=== PATIENT | male | born 1950 | race Caucasian/White ===

== ENCOUNTER 2017-08-09 20:14 | Emergency (ER) | payer MEDICARE ==
[2017-08-09 20:26] VITALS: BP 135/82; PULSE 89; RESP 20; TEMP 98.2
[2017-08-09] MEDS ORDERED: methylPREDNISolone SOD SUCCI 125 MG/2 ML VIAL IM STA (20:49)
--- NOTE | 2017-08-09 20:55 | ED ---
General Adult HPI - General Chief complaint: Skin/Abscess/Foreign Body Stated complaint: Rash Time Seen by Provider: 08/09/17 20:33 Source: patient, RN notes reviewed Mode of arrival: ambulatory Limitations: no limitations - History of Present Illness Initial comments: Patient 66-year-old male who presents emergency room today with a chief complaint of rash to his lower extremities over the last month. Doesn't that to the family doctor was prescribed a topical steroid which she only use twice because he did not like how it made him feel. He states he's been using oral steroids which is about finished. Patient states still having the rash to the lower extremities. He denies any other complaints. He states very itchy. Patient denies any recent fever, chills, shortness of breath, chest pain, back pain, abdominal pain, nausea or vomiting, numbness or tingling, dysuria or hematuria, constipation or diarrhea, headaches or visual changes, or any other complaints. - Related Data Home Medications Medication Instructions Recorded Confirmed Isosorbide Mononitrate ER [Imdur] 60 mg PO DAILY 10/21/15 08/09/17 Levothyroxine Sodium [Synthroid] 200 mcg PO DAILY 10/21/15 08/09/17 Lisinopril-Hctz 20-12.5 mg 1 tab PO DAILY 10/21/15 08/09/17 [Zestoretic 20-12.5] Metoprolol Tartrate [Lopressor] 75 mg PO DAILY 10/21/15 08/09/17 Potassium Chloride [Klor-Con 10] 10 meq PO HS 10/21/15 08/09/17 Pravastatin Sodium [Pravachol] 20 mg PO HS 10/21/15 08/09/17 traMADol HCL [Ultram] 100 mg PO BID 10/21/15 08/09/17 Aspirin 325 mg PO DAILY 08/27/16 08/09/17 Furosemide [Lasix] 20 mg PO DAILY 08/27/16 08/09/17 Multivit-Min/FA/Lycopen/Lutein 1 each PO DAILY 08/27/16 08/09/17 [Centrum Silver Tablet] Nitroglycerin Sl Tabs [Nitrostat] 0.4 mg SUBLINGUAL Q5M PRN 08/27/16 08/09/17 metFORMIN HCL [Glucophage] 500 mg PO BID 08/27/16 08/09/17 Previous Rx's Medication Instructions Recorded Mupirocin 2% Oint [Bactroban 2% 1 applic TOPICAL TID 7 Days 10/25/16 Oint] valACYclovir HCL [Valtrex] 1,000 mg PO Q8HR 7 Days 10/25/16 Betamethasone Valerate 1 applic TOPICAL BID 14 Days 08/09/17 [Betamethasone Valerate 0.1%] Allergies Allergy/AdvReac Type Severity Reaction Status Date / Time Iodine and Iodide Containing Allergy Rash/Hives Verified 08/09/17 20:26 Produc Review of Systems ROS Statement: Those systems with pertinent positive or pertinent negative responses have been documented in the HPI. ROS Other: All systems not noted in ROS Statement are negative. Past Medical History Past Medical History: Chest Pain / Angina, COPD, Diabetes Mellitus, Hyperlipidemia, Hypertension, Osteoarthritis (OA), Thyroid Disorder Additional Past Medical History / Comment(s): ARTHRITIS LOWER BACK & HIPS History of Any Multi-Drug Resistant Organisms: None Reported Past Surgical History: Coronary Bypass/CABG, Heart Catheterization, Tonsillectomy Additional Past Surgical History / Comment(s): kidney stones X 14- (LARGE KIDNEY STONE REMOVED 1980)HEART CATH X 3, DOUBLE BYPASS(CABG) 2002 Past Anesthesia/Blood Transfusion Reactions: Previous Problems w/ Anesthesia Additional Past Anesthesia/Blood Transfusion Reaction / Comment(s): PT WAS TOLD "HARD TO INTUBATE" Past Psychological History: No Psychological Hx Reported Smoking Status: Former smoker Past Alcohol Use History: None Reported Past Drug Use History: None Reported - Past Family History Mother Family Medical History: Myocardial Infarction ([place]) Additional Family Medical History / Comment(s): @ AGE 41 [place] Father Family Medical History: Diabetes Mellitus Additional Family Medical History / Comment(s): @ AGE 78 BLOCKAGE IN PANCREATIC DUCT General Exam - General Exam Comments Initial Comments: Patient denies any recent fever, chills, shortness of breath, chest pain, back pain, abdominal pain, nausea or vomiting, numbness or tingling, dysuria or hematuria, constipation or diarrhea, headaches or visual changes, or any other complaints. Limitations: no limitations Course Vital Signs 08/09/17 20:24 Temperature 98.2 F Pulse Rate 89 Respiratory 20 Rate Blood Pressure 135/82 O2 Sat by Pulse 98 Oximetry Disposition Clinical Impression: Contact dermatitis Disposition: HOME SELF-CARE Condition: Good Instructions: Contact Dermatitis (ED) Additional Instructions: Please use medication as discussed. Please follow-up with family doctor in the next 2 days of symptoms have not improved. Please return to emergency room if the symptoms increase or worsen or for any other concerns. Prescriptions: Betamethasone Valerate [Betamethasone Valerate 0.1%] 1 applic TOPICAL BID 14 Days Referrals: Cecilia Olmedo III, MD [Primary Care Provider] - 1-2 days Time of Disposition: 20:51
== END 2017-08-09 21:09 | disposition home or self-care (01) ==
LOC: EC 20:14
DX: L25.9 Unspecified contact dermatitis, unspecified cause (principal); E11.9 Type 2 diabetes mellitus without complications; E78.5 Hyperlipidemia, unspecified; I10 Essential (primary) hypertension; M19.90 Unspecified osteoarthritis, unspecified site; E07.9 Disorder of thyroid, unspecified; Z87.891 Personal history of nicotine dependence; Z79.82 Long term (current) use of aspirin; Z79.84 Long term (current) use of oral hypoglycemic drugs; Z79.899 Other long term (current) drug therapy; Z88.8 Allergy status to other drugs, medicaments and biological substances
CPT/HCPCS: 99282; 96372; J2930

== ENCOUNTER 2018-04-04 13:33 | Inpatient (IN) | payer MEDICARE, OTHER ==
[2018-04-04] MEDS ORDERED: ACETAMINOPHEN TAB 500 MG TAB PO STA (13:44)
[2018-04-04] MEDS ORDERED: SODIUM CHLORIDE 0.9% 1,000 ML IV STA ×2 (13:44)
[2018-04-04] MEDS ORDERED: IBUPROFEN 600 MG TAB PO STA (13:44)
[2018-04-04] MEDS ORDERED: IPRATROPIUM-ALBUTEROL 3 ML NEB INHALATION STA (13:45)
[2018-04-04] MEDS ORDERED: methylPREDNISolone SOD SUCCI 125 MG/2 ML VIAL IV STA (13:45)
--- NOTE | 2018-04-04 14:08 | ED ---
General Adult HPI - General Chief complaint: Fever Stated complaint: Fever, Weak Time Seen by Provider: 04/04/18 13:43 Source: patient, RN notes reviewed, old records reviewed Mode of arrival: wheelchair Limitations: no limitations - History of Present Illness Initial comments: This is a 59-year-old male to the ER for evaluation today. Patient's presenting today for evaluation regards to weakness, fatigue, cough congestion fever. Patient is also medical comorbidities including heart disease COPD. Recent hospital admission for COPD. Patient states he feels the need of prior pneumonia. No recent travel history, no known sick contacts. - Related Data Home Medications Medication Instructions Recorded Confirmed Isosorbide Mononitrate ER [Imdur] 60 mg PO DAILY 10/21/15 08/09/17 Levothyroxine Sodium [Synthroid] 200 mcg PO DAILY 10/21/15 08/09/17 Lisinopril-Hctz 20-12.5 mg 1 tab PO DAILY 10/21/15 08/09/17 [Zestoretic 20-12.5] Metoprolol Tartrate [Lopressor] 75 mg PO DAILY 10/21/15 08/09/17 Potassium Chloride [Klor-Con 10] 10 meq PO HS 10/21/15 08/09/17 Pravastatin Sodium [Pravachol] 20 mg PO HS 10/21/15 08/09/17 traMADol HCL [Ultram] 100 mg PO BID 10/21/15 08/09/17 Aspirin 325 mg PO DAILY 08/27/16 08/09/17 Furosemide [Lasix] 20 mg PO DAILY 08/27/16 08/09/17 Multivit-Min/FA/Lycopen/Lutein 1 each PO DAILY 08/27/16 08/09/17 [Centrum Silver Tablet] Nitroglycerin Sl Tabs [Nitrostat] 0.4 mg SUBLINGUAL Q5M PRN 08/27/16 08/09/17 metFORMIN HCL [Glucophage] 500 mg PO BID 08/27/16 08/09/17 Previous Rx's Medication Instructions Recorded Mupirocin 2% Oint [Bactroban 2% 1 applic TOPICAL TID 7 Days gm 10/25/16 Oint] valACYclovir HCL [Valtrex] 1,000 mg PO Q8HR 7 Days tab 10/25/16 Betamethasone Valerate 1 applic TOPICAL BID 14 Days gm 08/09/17 [Betamethasone Valerate 0.1%] Allergies Allergy/AdvReac Type Severity Reaction Status Date / Time Iodine and Iodide Containing Allergy Rash/Hives Verified 04/04/18 13:39 Produc Review of Systems ROS Statement: Those systems with pertinent positive or pertinent negative responses have been documented in the HPI. ROS Other: All systems not noted in ROS Statement are negative. Past Medical History Past Medical History: Chest Pain / Angina, COPD, Diabetes Mellitus, Hyperlipidemia, Hypertension, Osteoarthritis (OA), Thyroid Disorder Additional Past Medical History / Comment(s): ARTHRITIS LOWER BACK & HIPS History of Any Multi-Drug Resistant Organisms: None Reported Past Surgical History: Coronary Bypass/CABG, Heart Catheterization, Tonsillectomy Additional Past Surgical History / Comment(s): kidney stones X 14- (LARGE KIDNEY STONE REMOVED 1980)HEART CATH X 3, DOUBLE BYPASS(CABG) 2002 Past Anesthesia/Blood Transfusion Reactions: Previous Problems w/ Anesthesia Additional Past Anesthesia/Blood Transfusion Reaction / Comment(s): PT WAS TOLD "HARD TO INTUBATE" Past Psychological History: No Psychological Hx Reported Smoking Status: Former smoker Past Alcohol Use History: None Reported Past Drug Use History: None Reported - Past Family History Mother Family Medical History: Myocardial Infarction ([place]) Additional Family Medical History / Comment(s): @ AGE 41 [place] Father Family Medical History: Diabetes Mellitus Additional Family Medical History / Comment(s): @ AGE 78 BLOCKAGE IN PANCREATIC DUCT General Exam Limitations: no limitations General appearance: alert, in no apparent distress Head exam: Present: atraumatic, normocephalic, normal inspection Eye exam: Present: normal appearance, PERRL, EOMI. Absent: scleral icterus, conjunctival injection, periorbital swelling ENT exam: Present: normal exam, mucous membranes moist Neck exam: Present: normal inspection. Absent: tenderness, meningismus, lymphadenopathy Respiratory exam: Present: normal lung sounds bilaterally. Absent: respiratory distress, wheezes, rales, rhonchi, stridor Cardiovascular Exam: Present: regular rate, normal rhythm, normal heart sounds. Absent: systolic murmur, diastolic murmur, rubs, gallop, clicks GI/Abdominal exam: Present: soft, normal bowel sounds. Absent: distended, tenderness, guarding, rebound, rigid Extremities exam: Present: normal inspection, full ROM, normal capillary refill. Absent: tenderness, pedal edema, joint swelling, calf tenderness Back exam: Present: normal inspection Neurological exam: Present: alert, oriented X3, CN II-XII intact Psychiatric exam: Present: normal affect, normal mood Skin exam: Present: warm, dry, intact, normal color. Absent: rash Course Vital Signs 04/04/18 04/04/18 04/04/18 13:37 14:05 14:24 Temperature 99.4 F Pulse Rate 72 70 72 Respiratory 20 Rate Blood Pressure 144/80 O2 Sat by Pulse 98 Oximetry - Reevaluation(s) Reevaluation #1: 04/04/18 14:08 Medical record prior hospitalizations reviewed Reevaluation #2: 04/04/18 15:14 Patient is positive for flu, patient's informed. Breathing treatment and symptom control, fever control Medical Decision Making - Medical Decision Making 59 male the ER for evasive fever and weakness, positive influenza. COPD exacerbation with breathing. Patient will be admitted for continued IV steroids , breathing treatments hemodynamic support - Lab Data Result diagrams: 04/04/18 13:55 04/04/18 13:55 Lab Results 04/04/18 04/04/18 04/04/18 Range/Units 13:55 13:55 13:55 WBC 6.5 (3.8-10.6) k/uL RBC 4.76 (4.30-5.90) m/uL Hgb 14.8 (13.0-17.5) gm/dL Hct 43.7 (39.0-53.0) % MCV 91.8 (80.0-100.0) fL MCH 31.2 (25.0-35.0) pg MCHC 33.9 (31.0-37.0) g/dL RDW 13.4 (11.5-15.5) % Plt Count 191 (150-450) k/uL Neutrophils % 69 % Lymphocytes % 20 % Monocytes % 5 % Eosinophils % 3 % Basophils % 1 % Neutrophils # 4.5 (1.3-7.7) k/uL Lymphocytes # 1.3 (1.0-4.8) k/uL Monocytes # 0.3 (0-1.0) k/uL Eosinophils # 0.2 (0-0.7) k/uL Basophils # 0.0 (0-0.2) k/uL Sodium 147 H (137-145) mmol/L Potassium 4.1 (3.5-5.1) mmol/L Chloride 103 (98-107) mmol/L Carbon Dioxide 27 (22-30) mmol/L Anion Gap 17 mmol/L BUN 41 H (9-20) mg/dL Creatinine 1.50 H (0.66-1.25) mg/dL Est GFR (CKD-EPI)AfAm 55 (>60 ml/min/1.73 sqM) Est GFR (CKD-EPI)NonAf 47 (>60 ml/min/1.73 sqM) Glucose 208 H (74-99) mg/dL Plasma Lactic Acid [place] 2.0 (0.7-2.0) mmol/L Calcium 9.3 (8.4-10.2) mg/dL Total Bilirubin 0.2 (0.2-1.3) mg/dL AST 42 (17-59) U/L ALT 27 (21-72) U/L Alkaline Phosphatase 105 (38-126) U/L Total Protein 7.3 (6.3-8.2) g/dL Albumin 4.1 (3.5-5.0) g/dL Urine Color Urine Appearance (Clear) Urine pH (5.0-8.0) Ur Specific [place] (1.001-1.035) Urine Protein (Negative) Urine Glucose (UA) (Negative) Urine Ketones (Negative) Urine Blood (Negative) Urine Nitrite (Negative) Urine Bilirubin (Negative) Urine Urobilinogen (<2.0) mg/dL Ur Leukocyte Esterase (Negative) Influenza Type A RNA (Not Detectd) Influenza Type B (PCR) (Not Detectd) 04/04/18 04/04/18 Range/Units 13:55 14:46 WBC (3.8-10.6) k/uL RBC (4.30-5.90) m/uL Hgb (13.0-17.5) gm/dL Hct (39.0-53.0) % MCV (80.0-100.0) fL MCH (25.0-35.0) pg MCHC (31.0-37.0) g/dL RDW (11.5-15.5) % Plt Count (150-450) k/uL Neutrophils % % Lymphocytes % % Monocytes % % Eosinophils % % Basophils % % Neutrophils # (1.3-7.7) k/uL Lymphocytes # (1.0-4.8) k/uL Monocytes # (0-1.0) k/uL Eosinophils # (0-0.7) k/uL Basophils # (0-0.2) k/uL Sodium (137-145) mmol/L Potassium (3.5-5.1) mmol/L Chloride (98-107) mmol/L Carbon Dioxide (22-30) mmol/L Anion Gap mmol/L BUN (9-20) mg/dL Creatinine (0.66-1.25) mg/dL Est GFR (CKD-EPI)AfAm (>60 ml/min/1.73 sqM) Est GFR (CKD-EPI)NonAf (>60 ml/min/1.73 sqM) Glucose (74-99) mg/dL Plasma Lactic Acid [place] (0.7-2.0) mmol/L Calcium (8.4-10.2) mg/dL Total Bilirubin (0.2-1.3) mg/dL AST (17-59) U/L ALT (21-72) U/L Alkaline Phosphatase (38-126) U/L Total Protein (6.3-8.2) g/dL Albumin (3.5-5.0) g/dL Urine Color Light Yellow Urine Appearance Clear (Clear) Urine pH 5.0 (5.0-8.0) Ur Specific [place] 1.009 (1.001-1.035) Urine Protein Trace H (Negative) Urine Glucose (UA) Trace H (Negative) Urine Ketones Negative (Negative) Urine Blood Negative (Negative) Urine Nitrite Negative (Negative) Urine Bilirubin Negative (Negative) Urine Urobilinogen <2.0 (<2.0) mg/dL Ur Leukocyte Esterase Negative (Negative) Influenza Type A RNA Not Detected (Not Detectd) Influenza Type B (PCR) Detected H (Not Detectd) - Radiology Data Radiology results: report reviewed (Chest x-rays negative for acute disease), image reviewed Disposition Clinical Impression: Influenza, Fever, Weakness, Acute exacerbation of COPD with asthma Disposition: ADMITTED IP TO THIS [facility] Condition: Good Referrals: Cecilia Olmedo III, MD [Primary Care Provider] - 1-2 days
[2018-04-04 14:09] LABS: Basophils % (A) 1 %; Eosinophils # (A) 0.2 k/uL (0-0.7); Eosinophils % (A) 3 %; HCT 43.7 % (39.0-53.0); HGB 14.8 gm/dL (13.0-17.5); Lymphocytes # (A) 1.3 k/uL (1.0-4.8); Lymphocytes % (A) 20 %; MCH 31.2 pg (25.0-35.0); MCHC 33.9 g/dL (31.0-37.0); MCV 91.8 fL (80.0-100.0); Mean Platelet Volume 7.8; Monocytes # (A) 0.3 k/uL (0-1.0); Monocytes % (A) 5 %; Neutrophils # (A) 4.5 k/uL (1.3-7.7); Neutrophils % (A) 69 %; Platelet Count 191 k/uL (150-450); RBC 4.76 m/uL (4.30-5.90); RDW 13.4 % (11.5-15.5); WBC 6.5 k/uL (3.8-10.6)
[2018-04-04 14:15] LABS: Albumin 4.1 g/dL (3.5-5.0); Calcium 9.3 mg/dL (8.4-10.2); Potassium 4.1 mmol/L (3.5-5.1); Total Bilirubin 0.2 mg/dL (0.2-1.3); Total Protein 7.3 g/dL (6.3-8.2)
--- NOTE | 2018-04-04 14:49 | XR ---
EXAMINATION TYPE: XR chest 2V DATE OF EXAM: 04/04/2018 COMPARISON: 10/21/2015 INDICATION: Cough TECHNIQUE: Frontal and lateral views of the chest are obtained. FINDINGS: The heart size is normal. The pulmonary vasculature is normal. The lungs are clear. Sternotomy wires are present from prior CABG. IMPRESSION: 1. No acute pulmonary process.
[2018-04-04 15:04] LABS: Appearance,Urine Clear (Clear); Bilirubin,Urine Negative (Negative); Blood,Urine Negative (Negative); Color,Urine Light Yellow; Glucose,Urine (UA) Trace (Negative); Ketones,Urine Negative (Negative); Leukocyte Esterase,Urine Negative (Negative); Nitrite,Urine Negative (Negative); Protein,Urine Trace (Negative); Specific Gravity,Urine 1.009 (1.001-1.035); Urobilinogen,Urine <2.0 mg/dL (<2.0)
[2018-04-04] MEDS ORDERED: OSELTAMIVIR 75 MG CAP PO STA (15:12)
[2018-04-04] MEDS ORDERED: traMADol 50 MG TAB PO STA (15:13)
[2018-04-04] MEDS ORDERED: SODIUM CHLORIDE 0.9% 1,000 ML IV SCH (15:15)
[2018-04-04] MEDS: IPRATROPIUM-ALBUTEROL 3 ML NEB INHALATION SCH ×2 (16:01→19:58)
[2018-04-04 16:16] VITALS: BMI 35.6
[2018-04-04] MEDS ORDERED: NITROGLYCERIN SL TABS 0.4 MG TAB SUBLINGUAL PRN (16:29)
[2018-04-04] MEDS: methylPREDNISolone SOD SUCCI 125 MG/2 ML VIAL IV SCH (17:10)
[2018-04-04 17:21] LABS: Glucose,Whole Blood 149 mg/dL (75-99)
[2018-04-04] MEDS: INSULIN ASPART 100 UNIT/ML 1 ML 10 ML VIAL SQ SCH ×2 (17:35→21:35)
[2018-04-04 20:46] LABS: Glucose,Whole Blood 196 mg/dL (75-99)
[2018-04-04] MEDS: OSELTAMIVIR 75 MG CAP PO SCH (21:34)
[2018-04-04] MEDS: traMADol 50 MG TAB PO SCH (21:34)
[2018-04-04] MEDS: PRAVASTATIN SODIUM 20 MG TAB PO SCH (21:35)
[2018-04-05] MEDS: methylPREDNISolone SOD SUCCI 125 MG/2 ML VIAL IV SCH ×2 (00:02→05:49)
--- NOTE | 2018-04-05 00:03 | P.HPIM ---
History of Present Illness H&P Date: 04/04/18 Chief Complaint: Shortness of breath Patient is a 67-year-old male with a known history of COPD, hypertension, diabetes type 2 and history of coronary artery disease status post CABG and stent placement as well and other multiple medical problems came to ER with complaints of cough with congestion fever. Patient was also having generalized body aches weakness and fatigue. Patient was also having shortness of breath. Patient says that his has been coughing up as well and she got improved. Patient felt like he was having pneumonia No recent illnesses. No recent travel. Patient does have previous history of smoking quit in 2002 Chest x-ray showed no acute process Influenza B+ Past Medical History Past Medical History: Chest Pain / Angina, COPD, Diabetes Mellitus, Hyperlipidemia, Hypertension, Osteoarthritis (OA), Thyroid Disorder Additional Past Medical History / Comment(s): ARTHRITIS LOWER BACK & HIPS History of Any Multi-Drug Resistant Organisms: None Reported Past Surgical History: Coronary Bypass/CABG, Heart Catheterization, Tonsillectomy Additional Past Surgical History / Comment(s): kidney stones X 14- (LARGE KIDNEY STONE REMOVED 1980)HEART CATH X 3, DOUBLE BYPASS(CABG) 2002 Past Anesthesia/Blood Transfusion Reactions: Previous Problems w/ Anesthesia Additional Past Anesthesia/Blood Transfusion Reaction / Comment(s): PT WAS TOLD "HARD TO INTUBATE" Past Psychological History: No Psychological Hx Reported Additional Psychological History / Comment(s): Lives at home with Smoking Status: Former smoker Past Alcohol Use History: None Reported Additional Past Alcohol Use History / Comment(s): QUIT SMOKING 2002- SMOKES ABOUT 20 YRS OFF & ON 1/2-1 PPD Past Drug Use History: None Reported - Past Family History Mother Family Medical History: Myocardial Infarction ([place]) Additional Family Medical History / Comment(s): @ AGE 41 [place] Father Family Medical History: Diabetes Mellitus Additional Family Medical History / Comment(s): @ AGE 78 BLOCKAGE IN PANCREATIC DUCT Medications and Allergies Home Medications Medication Instructions Recorded Confirmed Type Isosorbide Mononitrate ER [Imdur] 60 mg PO DAILY 10/21/15 04/04/18 History Lisinopril-Hctz 20-12.5 mg 1 tab PO DAILY 10/21/15 04/04/18 History [Zestoretic 20-12.5] Metoprolol Tartrate [Lopressor] 75 mg PO DAILY 10/21/15 04/04/18 History Potassium Chloride [Klor-Con 10] 10 meq PO HS 10/21/15 04/04/18 History Pravastatin Sodium [Pravachol] 20 mg PO HS 10/21/15 04/04/18 History traMADol HCL [Ultram] 100 mg PO BID 10/21/15 04/04/18 History Aspirin 325 mg PO DAILY 08/27/16 04/04/18 History Multivit-Min/FA/Lycopen/Lutein 1 tab PO DAILY 08/27/16 04/04/18 History [Centrum Silver Tablet] Nitroglycerin Sl Tabs [Nitrostat] 0.4 mg SUBLINGUAL Q5M PRN 08/27/16 04/04/18 History metFORMIN HCL [Glucophage] 1,000 mg PO BID 08/27/16 04/04/18 History Furosemide [Lasix] 20 mg PO DAILY 04/04/18 04/04/18 History Allergies Allergy/AdvReac Type Severity Reaction Status Date / Time Iodine and Iodide Containing Allergy Rash/Hives Verified 04/04/18 15:15 Produc Physical Exam Vitals: Vital Signs Temp Pulse Pulse Resp BP BP Pulse Ox 04/04/18 16:00 97.5 F L 72 20 128/71 99 04/04/18 15:47 98.8 F 04/04/18 15:18 76 20 158/85 98 04/04/18 14:24 72 04/04/18 14:05 70 04/04/18 13:37 99.4 F 72 20 144/80 98 Intake and Output 04/04/18 04/04/18 04/04/18 06:59 14:59 22:59 Other: Weight 100.244 kg 100 kg Results CBC & Chem 7: 04/04/18 13:55 04/04/18 13:55 Labs: Abnormal Lab Results - Last 24 Hours (Table) 04/04/18 04/04/18 04/04/18 Range/Units 13:55 13:55 14:46 Sodium 147 H (137-145) mmol/L BUN 41 H (9-20) mg/dL Creatinine 1.50 H (0.66-1.25) mg/dL Glucose 208 H (74-99) mg/dL Urine Protein Trace H (Negative) Urine Glucose (UA) Trace H (Negative) Influenza Type B (PCR) Detected H (Not Detectd) Thrombosis Risk Factor Assmnt - Choose All That Apply Any of the Below Risk Factors Present?: Yes Each Factor Represents 1 point: Abnormal pulmonary function (COPD) Other Risk Factors: Yes Each Risk Factor Represents 2 Points: Age 61-74 years Thrombosis Risk Factor Assessment Total Risk Factor Score: 3 Thrombosis Risk Factor Assessment Level: Moderate Risk Assessment and Plan Assessment: Acute COPD exacerbation was precipitated by influenza B Acute influenza B infection Acute kidney injury most likely prerenal Hyponatremia 147 History of coronary artery disease status post coronary artery bypass graft Previous history of renal stones. Hypertension Diabetes type 2. [id number] Hyperlipidemia Osteoarthritis of multiple joints Hypothyroidism Previous history of smoking Plan: Patient will be continued on breathing treatments and IV steroids and continue the home medications and symptomatic management and follow closely. Further recommendations based on the clinical course. Current with home medications except hold Lasix and lisinopril/hydrochlorothiazide. Time with Patient: Greater than 30
[2018-04-05 07:39] LABS: Glucose,Whole Blood 195 mg/dL (75-99)
[2018-04-05] MEDS: IPRATROPIUM-ALBUTEROL 3 ML NEB INHALATION SCH ×4 (07:52→21:19)
[2018-04-05] MEDS: ENOXAPARIN 40 MG/0.4 ML SYRINGE SQ SCH (08:42)
[2018-04-05] MEDS: INSULIN ASPART 100 UNIT/ML 1 ML 10 ML VIAL SQ SCH ×4 (08:42→21:41)
[2018-04-05] MEDS: METOPROLOL TARTRATE 25 MG TAB PO SCH (08:43)
[2018-04-05] MEDS: ISOSORBIDE MONONITRATE ER 60 MG TAB.ER.24H PO SCH (08:43)
[2018-04-05] MEDS: OSELTAMIVIR 75 MG CAP PO SCH (08:43)
[2018-04-05] MEDS: ASPIRIN 325 MG TAB PO SCH (08:43)
[2018-04-05] MEDS: traMADol 50 MG TAB PO SCH ×2 (08:51→21:43)
[2018-04-05] MEDS ORDERED: METOPROLOL TARTRATE 50 MG TAB PO SCH (09:00)
[2018-04-05 10:09] LABS: Basophils % (A) 0 %; Eosinophils % (A) 0 %; HCT 40.3 % (39.0-53.0); HGB 12.8 gm/dL (13.0-17.5); Lymphocytes # (A) 0.5 k/uL (1.0-4.8); Lymphocytes % (A) 12 %; MCH 29.8 pg (25.0-35.0); MCHC 31.8 g/dL (31.0-37.0); MCV 93.8 fL (80.0-100.0); Mean Platelet Volume 8.6; Monocytes # (A) 0.2 k/uL (0-1.0); Monocytes % (A) 4 %; Neutrophils # (A) 3.7 k/uL (1.3-7.7); Neutrophils % (A) 83 %; Platelet Count 176 k/uL (150-450); RBC 4.29 m/uL (4.30-5.90); RDW 13.5 % (11.5-15.5); WBC 4.4 k/uL (3.8-10.6)
[2018-04-05 10:31] LABS: Calcium 8.9 mg/dL (8.4-10.2); Potassium 4.1 mmol/L (3.5-5.1)
[2018-04-05 12:06] LABS: Glucose,Whole Blood 245 mg/dL (75-99)
[2018-04-05] MEDS: MULTIVITAMINS, THERA 1 EACH TAB PO SCH (12:49)
--- NOTE | 2018-04-05 15:22 | P.CNPUL ---
<Ruthie Nicholas M - Last Filed: 04/05/18 15:01> History of Present Illness Consult date: 04/05/18 Requesting physician: Saira Carbajal Reason for consult: dyspnea, cough Chief complaint: Dyspnea, weakness, fatigue, cough, chest congestion or fever History of present illness: Mr. Dumas is a 67-year-old white male patient of Dr. Olmedo, also follows with Dr. Larsen for his history of mild intermittent asthma, presented to the emergency department on 04/04/2018 1333 with complaints of increasing dyspnea, weakness, fatigue, cough, chest congestion and fever. 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 Other medical history includes diabetes mellitus, hyperlipidemia, hypertension, osteoarthritis, hypothyroidism, coronary artery disease with past history of coronary bypass grafting, nephrolithiasis. Patient is a former smoker. Not on any inhalers or oxygen at this time, other than his rescue inhaler. Patient was last seen in the office last September 2017. Influenza screen was positive for influenza B. Chest x-ray showed no acute pulmonary process. No evidence of leukocytosis, but evidence of prerenal azotemia with BUN 41 and creatinine of 1.5. Patient has been afebrile while inpatient. Patient was started on Tamiflu, nebulized bronchodilators, IV Solu-Medrol and was admitted for further management. Review of Systems All systems: negative Constitutional: Denies chills, Denies fever Eyes: denies blurred vision, denies pain Ears, nose, mouth and throat: Denies headache, Denies sore throat Cardiovascular: Denies chest pain, Denies shortness of breath Respiratory: Reports congestion, Reports dyspnea, Denies cough Gastrointestinal: Denies abdominal pain, Denies diarrhea, Denies nausea, Denies vomiting Musculoskeletal: Denies myalgias Integumentary: Denies pruritus, Denies rash Neurological: Denies numbness, Denies weakness Psychiatric: Denies anxiety, Denies depression Endocrine: Denies fatigue, Denies weight change Past Medical History Past Medical History: Chest Pain / Angina, COPD, Diabetes Mellitus, Hyperlipidemia, Hypertension, Osteoarthritis (OA), Thyroid Disorder Additional Past Medical History / Comment(s): ARTHRITIS LOWER BACK & HIPS History of Any Multi-Drug Resistant Organisms: None Reported Past Surgical History: Coronary Bypass/CABG, Heart Catheterization, Tonsillectomy Additional Past Surgical History / Comment(s): kidney stones X 14- (LARGE KIDNEY STONE REMOVED 1980)HEART CATH X 3, DOUBLE BYPASS(CABG) 2002 Past Anesthesia/Blood Transfusion Reactions: Previous Problems w/ Anesthesia Additional Past Anesthesia/Blood Transfusion Reaction / Comment(s): PT WAS TOLD "HARD TO INTUBATE" Past Psychological History: No Psychological Hx Reported Additional Psychological History / Comment(s): Lives at home with Smoking Status: Former smoker Past Alcohol Use History: None Reported Additional Past Alcohol Use History / Comment(s): QUIT SMOKING 2002- SMOKES ABOUT 20 YRS OFF & ON 1/2-1 PPD Past Drug Use History: None Reported - Past Family History Mother Family Medical History: Myocardial Infarction ([place]) Additional Family Medical History / Comment(s): @ AGE 41 [place] Father Family Medical History: Diabetes Mellitus Additional Family Medical History / Comment(s): @ AGE 78 BLOCKAGE IN PANCREATIC DUCT Medications and Allergies Home Medications Medication Instructions Recorded Confirmed Type Isosorbide Mononitrate ER [Imdur] 60 mg PO DAILY 10/21/15 04/04/18 History Lisinopril-Hctz 20-12.5 mg 1 tab PO DAILY 10/21/15 04/04/18 History [Zestoretic 20-12.5] Metoprolol Tartrate [Lopressor] 75 mg PO DAILY 10/21/15 04/04/18 History Potassium Chloride [Klor-Con 10] 10 meq PO HS 10/21/15 04/04/18 History Pravastatin Sodium [Pravachol] 20 mg PO HS 10/21/15 04/04/18 History traMADol HCL [Ultram] 100 mg PO BID 10/21/15 04/04/18 History Aspirin 325 mg PO DAILY 08/27/16 04/04/18 History Multivit-Min/FA/Lycopen/Lutein 1 tab PO DAILY 08/27/16 04/04/18 History [Centrum Silver Tablet] Nitroglycerin Sl Tabs [Nitrostat] 0.4 mg SUBLINGUAL Q5M PRN 08/27/16 04/04/18 History metFORMIN HCL [Glucophage] 1,000 mg PO BID 08/27/16 04/04/18 History Furosemide [Lasix] 20 mg PO DAILY 04/04/18 04/04/18 History Allergies Allergy/AdvReac Type Severity Reaction Status Date / Time Iodine and Iodide Containing Allergy Rash/Hives Verified 04/04/18 15:15 Produc Physical Exam Vitals: Vital Signs Temp Pulse Pulse Resp BP BP Pulse Ox 04/05/18 11:37 82 16 04/05/18 11:27 80 16 04/05/18 08:03 78 16 04/05/18 08:00 54 L 16 04/05/18 07:52 77 16 04/05/18 05:35 97.3 F L 54 L 14 138/72 97 04/04/18 22:30 97.1 F L 84 16 143/86 98 04/04/18 20:07 72 04/04/18 19:58 72 04/04/18 16:00 97.5 F L 72 20 128/71 99 04/04/18 15:47 98.8 F 04/04/18 15:18 76 20 158/85 98 Intake and Output 04/05/18 04/05/18 04/05/18 06:59 14:59 22:59 Intake Total 1599 Balance 1599 Intake: Intake, IV Titration 1599 Amount Sodium Chloride 0.9% 1, 600 000 ml @ 75 mls/hr IV . [id number] STA Rx#:[id number] Sodium Chloride 0.9% 1, 999 000 ml @ 999 mls/hr IV . Q1H1M STA Rx#:[id number] - Constitutional General appearance: average body habitus - EENT Eyes: EOMI ENT: NA/AT, normal oropharynx - Neck Neck: no lymphadenopathy, normal ROM Carotids: bilateral: upstroke normal Thyroid: bilateral: normal size - Respiratory Respiratory: bilateral: diminished, prolonged expiration, other (bronchospastic cough) - Cardiovascular Rhythm: regular Heart sounds: normal: S1, S2 ankle Peripheral Edema: absent: None foot Peripheral Edema: absent: None dorsalis pedis Peripheral Pulses: bilateral: Normal radial pulse Peripheral Pulses: bilateral: Normal - Gastrointestinal General gastrointestinal: no organomegaly, soft, no tenderness - Integumentary Integumentary: normal turgor - Neurologic Neurologic: CNII-XII intact - Musculoskeletal Musculoskeletal: gait normal, strength equal bilaterally - Psychiatric Psychiatric: A&O x's 3, appropriate affect Results - Laboratory Findings CBC and BMP: 04/05/18 09:35 04/05/18 09:35 Abnormal lab findings: Abnormal Labs 05/05/1704/04/18 04/04/18 13:55 13:55 14:46 RBC Hgb Lymphocytes # Sodium 147 H BUN 41 H Creatinine 1.50 H Glucose 208 H POC Glucose (mg/dL) Urine Protein Trace H Urine Glucose (UA) Trace H Influenza Type B (PCR) Detected H 04/04/18 04/04/18 04/05/18 17:17 20:44 07:24 RBC Hgb Lymphocytes # Sodium BUN Creatinine Glucose POC Glucose (mg/dL) 149 H 196 H 195 H Urine Protein Urine Glucose (UA) Influenza Type B (PCR) 04/05/18 04/05/18 04/05/18 09:35 09:35 12:00 RBC 4.29 L Hgb 12.8 L Lymphocytes # 0.5 L Sodium BUN 39 H Creatinine Glucose 286 H POC Glucose (mg/dL) 245 H Urine Protein Urine Glucose (UA) Influenza Type B (PCR) - Diagnostic Findings Chest x-ray: report reviewed, image reviewed Assessment and Plan Plan: Assessment: #1. Influenza B infection #2. Acute exacerbation of mild intermittent asthma secondary to the above #3. Acute kidney injury secondary to dehydration #4. Coronary artery disease, status post two-vessel coronary bypass grafting, and previous stenting #5. Diabetes mellitus #6. Hypertension, hyperlipidemia #7. Osteoarthritis #8. Nicotine dependence, currently in remission Plan: Continue current medical treatment, patient has received a liter bolus of IV hydration, continue IV Solu-Medrol, Tamiflu, nebulized bronchodilators. We'll continue to follow. Anticipate further improvement I performed a history & physical examination of the patient and discussed their management with my nurse practitioner, Ruthie Nicholas. I reviewed the nurse practitioner's note and agree with the documented findings and plan of care. Lung sounds are diminished, prolonged expiratory phase, bronchospastic cough. The findings and the impression was discussed with the patient. I attest to the documentation by the nurse practitioner. Time with Patient: Greater than 30 <Jovana Kelly - Last Filed: 04/05/18 15:34> Physical Exam Vitals: Vital Signs Temp Pulse Pulse Resp BP Pulse Ox 04/05/18 11:37 82 16 04/05/18 11:27 80 16 04/05/18 08:03 78 16 04/05/18 08:00 54 L 16 04/05/18 07:52 77 16 04/05/18 05:35 97.3 F L 54 L 14 138/72 97 04/04/18 22:30 97.1 F L 84 16 143/86 98 04/04/18 20:07 72 04/04/18 19:58 72 04/04/18 16:00 97.5 F L 72 20 128/71 99 04/04/18 15:47 98.8 F Intake and Output 04/05/18 04/05/18 04/05/18 06:59 14:59 22:59 Intake Total 1599 Balance 1599 Intake: Intake, IV Titration 1599 Amount Sodium Chloride 0.9% 1, 600 000 ml @ 75 mls/hr IV . [id number] STA Rx#:[id number] Sodium Chloride 0.9% 1, 999 000 ml @ 999 mls/hr IV . Q1H1M STA Rx#:[id number] Other: # Voids 3 Results - Laboratory Findings CBC and BMP: 04/05/18 09:35 04/05/18 09:35 Abnormal lab findings: Abnormal Labs 04/04/18 04/04/18 04/04/18 13:55 13:55 14:46 RBC Hgb Lymphocytes # Sodium 147 H BUN 41 H Creatinine 1.50 H Glucose 208 H POC Glucose (mg/dL) Urine Protein Trace H Urine Glucose (UA) Trace H Influenza Type B (PCR) Detected H 04/04/18 04/04/18 04/05/18 17:17 20:44 07:24 RBC Hgb Lymphocytes # Sodium BUN Creatinine Glucose POC Glucose (mg/dL) 149 H 196 H 195 H Urine Protein Urine Glucose (UA) Influenza Type B (PCR) 04/05/18 04/05/18 04/05/18 09:35 09:35 12:00 RBC 4.29 L Hgb 12.8 L Lymphocytes # 0.5 L Sodium BUN 39 H Creatinine Glucose 286 H POC Glucose (mg/dL) 245 H Urine Protein Urine Glucose (UA) Influenza Type B (PCR) Assessment and Plan Plan: This is a joint evaluation that was done along with a nurse practitioner. The patient has an acute exacerbation of mild intermittent bronchial asthma secondary influenza B respiratory tract infection. 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 He did not smoking for now. Anticipate improvement and discharge in the next 24-48 hours. Clinically stable.
[2018-04-05] MEDS: methylPREDNISolone SOD SUCCI 40 MG/ML 1 ML VIAL IV SCH (16:22)
[2018-04-05 17:42] LABS: Glucose,Whole Blood 278 mg/dL (75-99)
[2018-04-05 21:23] LABS: Glucose,Whole Blood 337 mg/dL (75-99)
[2018-04-05] MEDS: PRAVASTATIN SODIUM 20 MG TAB PO SCH (21:43)
[2018-04-05 23:32] VITALS: RESP 14
[2018-04-06] MEDS: OSELTAMIVIR 60 MG/10 ML ORAL SYRINGE PO SCH ×2 (00:37→08:09)
[2018-04-06] MEDS: methylPREDNISolone SOD SUCCI 40 MG/ML 1 ML VIAL IV SCH ×3 (00:39→15:28)
--- NOTE | 2018-04-06 01:16 | P.PN ---
Subjective Progress Note Date: 04/05/18 Principal diagnosis: Acute influenza B infection Patient is a 67-year-old male with a known history of COPD, hypertension, diabetes type 2 and history of coronary artery disease status post CABG and stent placement as well and other multiple medical problems came to ER with complaints of cough with congestion fever. Patient was also having generalized body aches weakness and fatigue. Patient was also having shortness of breath. Patient says that his has been coughing up as well and she got improved. Patient felt like he was having pneumonia No recent illnesses. No recent travel. Patient does have previous history of smoking quit in 2002 Chest x-ray showed no acute process Influenza B+ 5 7 2017 Patient denied any complaints of chest pain. Shortness of breath much improved. Otherwise patient started tolerating oral diet slowly. IV fluids will be held at this time and steroids will be changed to Solu-Medrol 40 mg every 8 hourly. Diarrhea resolved as well. Renal function improved as well as sodium level. Discharge tomorrow with the more clinical improvement. All other review of systems negative except the above Active Medications Generic Name Dose Route Start Last Admin Trade Name Freq PRN Reason Stop Dose Admin Albuterol/Ipratropium 3 ml 04/04/18 16:00 04/05/18 07:52 Duoneb 0.5 Mg-3 Mg/3 Ml Soln INHALATION 3 ml RT-QID LEILA Administration Aspirin 325 mg 04/05/18 09:00 04/05/18 08:43 Aspirin PO 325 mg DAILY LEILA Administration Enoxaparin Sodium 40 mg 04/05/18 09:00 04/05/18 08:42 Lovenox SQ 40 mg DAILY LEILA Administration Insulin Aspart 0 unit 04/04/18 17:30 04/05/18 08:42 Novolog SQ 5 unit ACHS LEILA Administration Protocol Isosorbide Mononitrate 60 mg 04/05/18 09:00 04/05/18 08:43 Imdur PO 60 mg DAILY LEILA Administration Methylprednisolone Sodium Succinate 40 mg 04/05/18 16:00 Solu-Medrol IV Q8HR [facility] Metoprolol Tartrate 75 mg 04/05/18 09:00 04/05/18 08:43 Lopressor PO 75 mg DAILY LEILA Administration Multivitamins 1 each 04/05/18 12:00 Theragran PO 1200 [facility] Nitroglycerin 0.4 mg 04/04/18 16:29 Nitrostat SUBLINGUAL Q5M PRN Chest Pain Oseltamivir Phosphate 30 mg 04/05/18 21:00 Tamiflu PO 04/09/18 09:01 Q12HR LEILA Pravastatin Sodium 20 mg 04/04/18 21:00 04/04/18 21:35 Pravachol PO 20 mg HS LEILA Administration Tramadol HCl 100 mg 04/04/18 21:00 04/05/18 08:51 Ultram PO 100 mg BID LEILA Administration Objective - Vital Signs Vital signs: Vital Signs Temp 97.3 F L 04/05/18 05:35 Pulse 78 04/05/18 08:03 Resp 16 04/05/18 08:03 BP 138/72 04/05/18 05:35 Pulse Ox 97 04/05/18 05:35 Intake & Output 04/04/18 04/05/18 04/05/18 18:59 06:59 18:59 Intake Total 1599 Balance 1599 Weight 100 kg Intake: Intake, IV Titration 1599 Amount Sodium Chloride 0.9% 1, 600 000 ml @ 75 mls/hr IV . [id number] STA Rx#:[id number] Sodium Chloride 0.9% 1, 999 000 ml @ 999 mls/hr IV . Q1H1M STA Rx#:[id number] Other: # Voids 1 - Exam PHYSICAL EXAMINATION: Patient is lying in the bed comfortably, no acute distress, awake alert and oriented.. HEENT: Normocephalic. Neck is supple. Pupils reactive. Nostrils clear. Oral cavity is moist. Ears reveal no drainage. Neck reveals no JVD, carotid bruits, or thyromegaly. CHEST EXAMINATION: Trachea is central. Symmetrical expansion. Air entry improving. Prolonged expiration. remaining Lung vazquez clear to auscultation and percussion. CARDIAC: Normal S1, S2 with no gallops. No murmurs ABDOMEN: Soft. Bowel sounds normal. No organomegaly. No abdominal bruits. Extremities: reveal no edema. No clubbing or cyanosis Neurologically awake, alert, oriented x3 with well-coordinated movements. No focal deficits noted Skin: No rash or skin lesions. Psychiatric: Cooperative. Nonsuicidal Musculoskeletal: No joint swelling or deformity. Normal range of motion. - Labs CBC & Chem 7: 04/05/18 09:35 04/05/18 09:35 Labs: Abnormal Lab Results - Last 24 Hours (Table) 04/04/18 04/04/18 04/04/18 Range/Units 13:55 13:55 14:46 RBC (4.30-5.90) m/uL Hgb (13.0-17.5) gm/dL Lymphocytes # (1.0-4.8) k/uL Sodium 147 H (137-145) mmol/L BUN 41 H (9-20) mg/dL Creatinine 1.50 H (0.66-1.25) mg/dL Glucose 208 H (74-99) mg/dL POC Glucose (mg/dL) (75-99) mg/dL Urine Protein Trace H (Negative) Urine Glucose (UA) Trace H (Negative) Influenza Type B (PCR) Detected H (Not Detectd) 04/04/18 04/04/18 04/05/18 Range/Units 17:17 20:44 07:24 RBC (4.30-5.90) m/uL Hgb (13.0-17.5) gm/dL Lymphocytes # (1.0-4.8) k/uL Sodium (137-145) mmol/L BUN (9-20) mg/dL Creatinine (0.66-1.25) mg/dL Glucose (74-99) mg/dL POC Glucose (mg/dL) 149 H 196 H 195 H (75-99) mg/dL Urine Protein (Negative) Urine Glucose (UA) (Negative) Influenza Type B (PCR) (Not Detectd) 04/05/18 04/05/18 Range/Units 09:35 09:35 RBC 4.29 L (4.30-5.90) m/uL Hgb 12.8 L (13.0-17.5) gm/dL Lymphocytes # 0.5 L (1.0-4.8) k/uL Sodium (137-145) mmol/L BUN 39 H (9-20) mg/dL Creatinine (0.66-1.25) mg/dL Glucose 286 H (74-99) mg/dL POC Glucose (mg/dL) (75-99) mg/dL Urine Protein (Negative) Urine Glucose (UA) (Negative) Influenza Type B (PCR) (Not Detectd) Microbiology - Last 24 Hours (Table) 04/04/18 14:46 Urine Culture - Preliminary Urine,Clean Catch Assessment and Plan Assessment: Acute asthma/COPD exacerbation was precipitated by influenza B and improving Acute influenza B infection Acute kidney injury most likely prerenal. resolved Hyponatremia 147--144 History of coronary artery disease status post coronary artery bypass graft Previous history of renal stones. Hypertension Diabetes type 2. [id number] home Hyperlipidemia Osteoarthritis of multiple joints Hypothyroidism Previous history of smoking Plan: Patient will be continued on breathing treatments and IV steroids and continue the home medications and symptomatic management and follow closely. Continue with Tamiflu 30 mg every 12 depending on the renal function. Further recommendations based on the clinical course. Current with home medications except hold Lasix and lisinopril/hydrochlorothiazide due to hypotension. Time with Patient: Greater than 30
[2018-04-06 06:42] VITALS: BP 139/74; TEMP 97.1
[2018-04-06 06:59] LABS: Glucose,Whole Blood 187 mg/dL (75-99)
[2018-04-06] MEDS: IPRATROPIUM-ALBUTEROL 3 ML NEB INHALATION SCH ×2 (07:48→11:42)
[2018-04-06] MEDS: INSULIN ASPART 100 UNIT/ML 1 ML 10 ML VIAL SQ SCH ×2 (08:07→12:49)
[2018-04-06] MEDS: ENOXAPARIN 40 MG/0.4 ML SYRINGE SQ SCH (08:08)
[2018-04-06] MEDS: ASPIRIN 325 MG TAB PO SCH (08:08)
[2018-04-06] MEDS: ISOSORBIDE MONONITRATE ER 60 MG TAB.ER.24H PO SCH (08:08)
[2018-04-06] MEDS: METOPROLOL TARTRATE 25 MG TAB PO SCH (08:08)
[2018-04-06] MEDS: traMADol 50 MG TAB PO SCH (08:15)
[2018-04-06] MEDS ORDERED: CALCIUM CARBONATE 500 MG CHEWABLE PO PRN (09:39)
[2018-04-06 11:34] LABS: Glucose,Whole Blood 148 mg/dL (75-99)
[2018-04-06 11:46] VITALS: PULSE 80
[2018-04-06] MEDS: MULTIVITAMINS, THERA 1 EACH TAB PO SCH (12:49)
--- NOTE | 2018-04-06 13:16 | P.PN ---
Subjective Progress Note Date: 04/06/18 Principal diagnosis: Acute exacerbation of mild intermittent asthma secondary to influenza B infection Mr. Dumas is a 67-year-old white male patient of Dr. Olmedo, also follows with Dr. Larsen for his history of mild intermittent asthma, presented to the emergency department on 04/04/2018 1333 with complaints of increasing dyspnea, weakness, fatigue, cough, chest congestion and fever. 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 Other medical history includes diabetes mellitus, hyperlipidemia, hypertension, osteoarthritis, hypothyroidism, coronary artery disease with past history of coronary bypass grafting, nephrolithiasis. Patient is a former smoker. Not on any inhalers or oxygen at this time, other than his rescue inhaler. Patient was last seen in the office last September 2017. Influenza screen was positive for influenza B. Chest x-ray showed no acute pulmonary process. No evidence of leukocytosis, but evidence of prerenal azotemia with BUN 41 and creatinine of 1.5. Patient has been afebrile while inpatient. Patient was started on Tamiflu, nebulized bronchodilators, IV Solu-Medrol and was admitted for further management. On 04/06/2018 patient seen in follow-up on medical surgical floor. Reports improvement in his dyspnea, and chest congestion. Lung sounds are clear to auscultation, no rhonchi or wheezing noted on today's exam. Patient is afebrile , vital signs are stable, patient is currently on room air, with O2 sat 98%. Patient started experiencing steroid induced hyperglycemia, and decided to stop taking them. Patient is stable, and in the steroids can be discontinued now. Patient is improving, no acute events overnight, patient has been treated with Tamiflu, nebulized bronchodilators, and he did receive a few doses of IV steroids with improvement. Patient is stable for discharge home today, with a follow-up appointment with to see Dr. Larsen within the week. Objective - Vital Signs Vital signs: Vital Signs Temp 97.1 F L 04/06/18 05:35 Pulse 80 04/06/18 11:55 Resp 14 04/06/18 05:35 BP 139/74 04/06/18 05:35 Pulse Ox 98 04/06/18 05:35 Intake & Output 04/05/18 04/06/18 04/06/18 18:59 06:59 18:59 Other: # Voids 3 2 # Bowel Movements 1 - Exam - Constitutional General appearance: average body habitus - EENT Eyes: EOMI ENT: NA/AT, normal oropharynx - Neck Neck: no lymphadenopathy, normal ROM Carotids: bilateral: upstroke normal Thyroid: bilateral: normal size - Respiratory Respiratory: bilateral: diminished, better air entry noted bilaterally, no rhonchi or wheezes noted on today's exam. - Cardiovascular Rhythm: regular Heart sounds: normal: S1, S2 ankle Peripheral Edema: absent: None foot Peripheral Edema: absent: None dorsalis pedis Peripheral Pulses: bilateral: Normal radial pulse Peripheral Pulses: bilateral: Normal - Gastrointestinal General gastrointestinal: no organomegaly, soft, no tenderness - Integumentary Integumentary: normal turgor - Neurologic Neurologic: CNII-XII intact - Musculoskeletal Musculoskeletal: gait normal, strength equal bilaterally - Psychiatric Psychiatric: A&O x's 3, appropriate affect - Labs CBC & Chem 7: 04/05/18 09:35 04/05/18 09:35 Labs: Abnormal Lab Results - Last 24 Hours (Table) 04/05/18 04/05/18 04/06/18 Range/Units 17:35 21:06 06:57 POC Glucose (mg/dL) 278 H 337 H 187 H (75-99) mg/dL 04/06/18 Range/Units 11:24 POC Glucose (mg/dL) 148 H (75-99) mg/dL Microbiology - Last 24 Hours (Table) 04/04/18 14:46 Urine Culture - Final Urine,Clean Catch 04/04/18 13:55 Blood Culture - Preliminary Blood No Growth after 24 hours Assessment and Plan Plan: Assessment: #1. Influenza B infection #2. Acute exacerbation of mild intermittent asthma secondary to the above #3. Acute kidney injury secondary to dehydration, improving #4. Steroid induced hyperglycemia #5. Coronary artery disease, status post two-vessel coronary bypass grafting, and previous stenting #6. Diabetes mellitus #7. Hypertension, hyperlipidemia #8. Osteoarthritis #9. Nicotine dependence, currently in remission Plan: Patient's renal profile is improving, he has been gently rehydrated, tolerating oral intake, patient is voiding. He has been treated with oral Tamiflu, has received a few doses of IV Solu-Medrol, IV bronchodilators, and responded favorably to treatments. Reports less chest congestion, less dyspnea and less chest tightness. 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 Patient will follow-up with Dr. Larsen in the office in one week I performed a history & physical examination of the patient and discussed their management with my nurse practitioner, Ruthie Nicholas. I reviewed the nurse practitioner's note and agree with the documented findings and plan of care. Lung sounds are clear. The findings and the impression was discussed with the patient. I attest to the documentation by the nurse practitioner. Time with Patient: Less than 30
--- NOTE | 2018-04-06 18:24 | DS ---
DISCHARGE SUMMARY FINAL DIAGNOSES: 1. Chronic obstructive pulmonary disease and bronchial asthma acute exacerbation with acute purulent tracheobronchitis. 2. Acute influenza B. 3. Acute kidney injury, possibly prerenal. 4. Hyponatremia. 5. History of coronary artery disease with coronary artery bypass graft. 6. Hypertension. 7. Diabetes mellitus type 2. DISCHARGE CONDITION: The patient will be discharged in stable condition with guarded prognosis. HISTORY OF PRESENT ILLNESS: This 67-year-old gentleman with a past medical history of multiple medical problems, was admitted with COPD, asthma acute exacerbation, influenza B treated symptomatically. Patient also multiple other complex medical issues as detailed. Patient improved significantly. On exam, vitals are stable. Cardiovascular S1 and S2. Abdomen soft. Nervous system, no focal deficits. DISCHARGE INSTRUCTIONS: 1. Cardiac diet. 2. Activity limited. FOLLOWUP: 1. Follow up with Dr. Larsen in 2 to 3 days. 2. Follow up with Dr. Olmedo in 2 to 3 days. MEDICATIONS: 1. Aspirin 325 mg daily. 2. Lasix 20 mg p.o. daily. 3. DuoNeb q.i.d. and p.r.n. 4. Imdur ER 60 mg p.o. daily. 5. Lisinopril hydrochlorothiazide 20/12.5 mg p.o. daily. 6. Glucophage 1000 mg p.o. b.i.d. 7. Lopressor 100 mg p.o. daily. 8. Multivitamin. 9. Nitrostat 0.4 mg p.r.n. 10.Tylenol 30 mg p.o. daily. 11.Klor-Con 10 mg p.o. at bedtime. 12.Pravachol 20 mg at bedtime. 13.Prednisone 30 mg daily for 3 days, 20 for 3 days, 10 for 3 days and then stop. Once again, the patient will be discharged in stable condition with guarded prognosis. MMODL / IJN: [id number] / [facility]
== END 2018-04-06 16:09 | disposition home or self-care (01) | DRG 191 ==
LOC: EC 13:33 → 4MS4W 15:13
PROVIDERS: ADMIT Hospitalist; ATTEND Hospitalist
DX: J44.1 Chronic obstructive pulmonary disease with (acute) exacerbation (principal); J45.21 Mild intermittent asthma with (acute) exacerbation; N17.9 Acute kidney failure, unspecified; E03.9 Hypothyroidism, unspecified; E11.65 Type 2 diabetes mellitus with hyperglycemia; E78.5 Hyperlipidemia, unspecified; E86.0 Dehydration; I10 Essential (primary) hypertension; I25.10 Atherosclerotic heart disease of native coronary artery without angina pectoris; J10.1 Influenza due to other identified influenza virus with other respiratory manifestations; M15.9 Polyosteoarthritis, unspecified; T38.0X5A Adverse effect of glucocorticoids and synthetic analogues, initial encounter; J44.0 Chronic obstructive pulmonary disease with (acute) lower respiratory infection; J20.9 Acute bronchitis, unspecified; F17.201 Nicotine dependence, unspecified, in remission; Z79.82 Long term (current) use of aspirin; Z79.899 Other long term (current) drug therapy; Z79.890 Hormone replacement therapy; Z79.84 Long term (current) use of oral hypoglycemic drugs; Z91.041 Radiographic dye allergy status; Z95.5 Presence of coronary angioplasty implant and graft; Z95.1 Presence of aortocoronary bypass graft; Z87.442 Personal history of urinary calculi; Z83.3 Family history of diabetes mellitus; Z82.49 Family history of ischemic heart disease and other diseases of the circulatory system
CPT/HCPCS: 36415; 71046; 80048; 80053; 81003; 83605; 85025; 87040; 87086; 87502; 94640; 96361; 96374; 99285

== ENCOUNTER → 2019-07-08 | Outpatient (CLI) | payer MEDICARE ==
--- NOTE | 2019-07-09 07:43 | US ---
EXAMINATION TYPE: US kidneys/renal and bladder DATE OF EXAM: 07/08/2019 COMPARISON: NONE CLINICAL HISTORY: N17.9 Acute kidney failure. Painful urination. Hx renal stones with surgical remov al on left kidney EXAM MEASUREMENTS: Right Kidney: 9.9 x 5.1 x 4.2 cm Left Kidney: 9.8 x 4.2 x 4.5 cm Right Kidney: No hydronephrosis. Lateral lower pole cystic appearing lesion visualized - 1.4 x 1.7 x 1.4 cm Left Kidney: No hydronephrosis or masses seen. Cortical tissue appears lobular. Bladder: Not fully distended. Wall appears thickened - 5.0 mm but could be due to nondistension Bilateral Jets not seen IMPRESSION: Lobulation of the renal contours with no hydronephrosis or nephrolithiasis. Benign-appearing simple c yst right kidney. Bladder wall is incompletely distended which may account for the wall thickening correlate clinically to exclude cystitis.
== END | disposition home or self-care (01) ==
LOC: RADUSWWP 16:13
PROVIDERS: ATTEND Family Medicine
DX: N28.1 Cyst of kidney, acquired (principal); N32.89 Other specified disorders of bladder
CPT/HCPCS: 76770

== ENCOUNTER → 2020-01-04 | Outpatient (CLI) | payer MEDICARE ==
--- NOTE | 2020-01-04 09:31 | US ---
EXAMINATION TYPE: US duplex aorta DATE OF EXAM: 01/04/2020 COMPARISON: NONE CLINICAL HISTORY: Z87.891 personal hx of nicotine dependence. Difficult and limited exam due to overl melvin bowel gas EXAM MEASUREMENTS: Abdominal Aorta: Proximal: Obscured by bowel gas Mid: 2.0 x 1.7 x 2.1 cm Distal: 1.8 x 1.9 x 2.1 cm Bifurcation: Rt: 1.0 x 1.1 cm Lt: 1.2 x 1.2 cm Moderate amount of atherosclerotic plaque visualized with no sonographic evidence of AAA on this exam . Proximal portion is obscured by bowel gas. IMPRESSION: Moderate atheromatous changes of the abdominal aorta without sonographic evidence of abdo landon aortic aneurysm in the visualized portions. Proximal aorta is obscured by bowel gas and nonvisu alized.
[2020-01-04 10:33] LABS: Albumin 3.7 g/dL (3.5-5.0); Calcium 9.4 mg/dL (8.4-10.2); Potassium 4.7 mmol/L (3.5-5.1); Total Bilirubin 0.4 mg/dL (0.2-1.3); Total Protein 6.7 g/dL (6.3-8.2)
[2020-01-04 10:49] LABS: T4, Free (Free Thyroxine) 1.32 ng/dL (0.78-2.19)
== END | disposition home or self-care (01) ==
LOC: RADUSWWP 08:51
PROVIDERS: ATTEND Family Medicine
DX: Z13.89 Encounter for screening for other disorder (principal); E03.9 Hypothyroidism, unspecified; E83.52 Hypercalcemia; Z87.891 Personal history of nicotine dependence
CPT/HCPCS: 36415; 80053; 82306; 83970; 84439; 84443; 93979

== ENCOUNTER 2021-01-30 11:56 | Observation (INO) | payer MEDICARE ==
--- NOTE | 2021-01-30 12:47 | ED ---
General Adult HPI - General Chief complaint: Extremity Problem,Nontraumatic Stated complaint: L Side Pain Time Seen by Provider: 01/30/21 12:14 Source: patient Mode of arrival: ambulatory Limitations: no limitations - History of Present Illness Initial comments: 70 year-old male patient presents to the emergency department for evaluation left sided neck pain and arm pain. States symptoms have been present for the last week. States that the pain is intermittent and does occasionally worsen with movement of the arm. Denies history of neck or shoulder pain. Denies any chest pain or shortness of breath. States he has been fatigued and sleeping more than usual. States he has tried nitro when the pain is present and it does relieve it. He has history of CAD with 2 vessel CABG in 2002, stents placed prior to that. Patient denies any recent rash, fever, chills, cough, abdominal pain, nausea, vomiting, diarrhea, constipation, back pain, numbness, tingling, dizziness, weakness, hematuria, dysuria, urinary urgency, urinary frequency, headache, visual changes, or any other complaints. - Related Data Home Medications Medication Instructions Recorded Confirmed Isosorbide Mononitrate ER [Imdur] 60 mg PO DAILY 10/21/15 04/04/18 Lisinopril-Hctz 20-12.5 mg 1 tab PO DAILY 10/21/15 04/04/18 [Zestoretic 20-12.5] Metoprolol Tartrate [Lopressor] 75 mg PO DAILY 10/21/15 04/04/18 Potassium Chloride [Klor-Con 10] 10 meq PO HS 10/21/15 04/04/18 Pravastatin Sodium [Pravachol] 20 mg PO HS 10/21/15 04/04/18 traMADol HCL [Ultram] 100 mg PO BID 10/21/15 04/04/18 Aspirin 325 mg PO DAILY 08/27/16 04/04/18 Multivit-Min/FA/Lycopen/Lutein 1 tab PO DAILY 08/27/16 04/04/18 [Centrum Silver Tablet] Nitroglycerin Sl Tabs [Nitrostat] 0.4 mg SUBLINGUAL Q5M PRN 08/27/16 04/04/18 metFORMIN HCL [Glucophage] 1,000 mg PO BID 08/27/16 04/04/18 Furosemide [Lasix] 20 mg PO DAILY 04/04/18 04/04/18 Previous Rx's Medication Instructions Recorded Ipratropium-Albuterol Nebulize 3 ml INHALATION TID 30 Days #5 box 04/06/18 [Duoneb 0.5 mg-3 mg/3 ml Soln] Oseltamivir 6Mg/ml Oral Susp 30 mg PO DAILY 4 Days #240 ml 04/06/18 [Tamiflu] predniSONE 10 mg PO DIRECTED #18 tab 04/06/18 Allergies Allergy/AdvReac Type Severity Reaction Status Date / Time Iodine and Iodide Containing Allergy Rash/Hives Verified 01/30/21 12:04 Produc Review of Systems ROS Statement: Those systems with pertinent positive or pertinent negative responses have been documented in the HPI. ROS Other: All systems not noted in ROS Statement are negative. Past Medical History Past Medical History: Chest Pain / Angina, COPD, Diabetes Mellitus, Hyperlipidemia, Hypertension, Osteoarthritis (OA), Thyroid Disorder Additional Past Medical History / Comment(s): ARTHRITIS LOWER BACK & HIPS History of Any Multi-Drug Resistant Organisms: None Reported Past Surgical History: Coronary Bypass/CABG, Heart Catheterization, Tonsillectomy Additional Past Surgical History / Comment(s): kidney stones X 14- (LARGE KIDNEY STONE REMOVED 1980)HEART CATH X 3, DOUBLE BYPASS(CABG) 2002 Past Anesthesia/Blood Transfusion Reactions: Previous Problems w/ Anesthesia Additional Past Anesthesia/Blood Transfusion Reaction / Comment(s): PT WAS TOLD "HARD TO INTUBATE" Past Psychological History: No Psychological Hx Reported Smoking Status: Former smoker Past Alcohol Use History: Rare Past Drug Use History: None Reported - Past Family History Mother Family Medical History: Myocardial Infarction ([place]) Additional Family Medical History / Comment(s): @ AGE 41 [place] Father Family Medical History: Diabetes Mellitus Additional Family Medical History / Comment(s): @ AGE 78 BLOCKAGE IN PANCREATIC DUCT General Exam Limitations: no limitations General appearance: alert, in no apparent distress, other (This is a well- developed, well-nourished adult male patient in no acute distress. Vital signs upon presentation are temperature 98.9F, pulse 69, respirations 17, blood pressure 151/83, pulse ox 97% on room air) Eye exam: Present: normal appearance, PERRL, EOMI. Absent: scleral icterus, conjunctival injection, periorbital swelling ENT exam: Present: normal exam, normal oropharynx, mucous membranes moist Neck exam: Present: normal inspection. Absent: tenderness, meningismus, lymphadenopathy Respiratory exam: Present: normal lung sounds bilaterally. Absent: respiratory distress, wheezes, rales, rhonchi, stridor Cardiovascular Exam: Present: regular rate, normal rhythm, normal heart sounds. Absent: systolic murmur, diastolic murmur, rubs, gallop, clicks GI/Abdominal exam: Present: soft, normal bowel sounds. Absent: distended, tenderness, guarding, rebound, rigid Extremities exam: Present: normal inspection, full ROM, normal capillary refill, other (Skin to the left upper exam is pink, warm, dry. Cap refill less than 3 seconds. Radial pulses 2+. No arm swelling.). Absent: tenderness, pedal edema, joint swelling, calf tenderness Neurological exam: Present: alert, oriented X3, CN II-XII intact Psychiatric exam: Present: normal affect, normal mood Skin exam: Present: warm, dry, intact, normal color. Absent: rash Course Vital Signs 01/30/21 01/30/21 11:59 13:57 Temperature 98.9 F 97.6 F Pulse Rate 69 62 Respiratory 17 16 Rate Blood Pressure 151/83 138/78 O2 Sat by Pulse 97 99 Oximetry EKG Findings - EKG Comments: EKG Findings:: EKG obtained at 1217 shows normal sinus rhythm with a right bundl e branch block. Ventricular rate is 68, AZ interval 196, QRS duration 1:30, QTC 460, QTC 489. Right bundle branch block is new in comparison to EKG from 2015. Medical Decision Making - Medical Decision Making 70-year-old male patient presents to the emergency department today for evaluation of left-sided neck pain and left arm pain that is relieved with nitro. Pain is been intermittent over the last week. Patient is also reporting increased fatigue and sleepiness. Does have a history of CAD with CABG and stents. Labs reviewed and were unremarkable, troponin is negative. EKG showed sinus rhythm with a right bundle branch block new compared to previous EKG in 2015. He is unsure has had this in the past. He'll be admitted to the hospital for serial troponins and further evaluation by cardiology. Patient is agreeable. Case discussed with my attending Dr. Howard. - Lab Data Result diagrams: 01/30/21 12:34 01/30/21 12:34 Lab Results 01/30/21 01/30/21 01/30/21 Range/Units 12:34 12:34 12:34 WBC 10.1 (3.8-10.6) k/uL RBC 4.55 (4.30-5.90) m/uL Hgb 13.9 (13.0-17.5) gm/dL Hct 42.0 (39.0-53.0) % MCV 92.3 (80.0-100.0) fL MCH 30.5 (25.0-35.0) pg MCHC 33.0 (31.0-37.0) g/dL RDW 13.6 (11.5-15.5) % Plt Count 277 (150-450) k/uL MPV 8.2 Neutrophils % 70 % Lymphocytes % 18 % Monocytes % 5 % Eosinophils % 6 % Basophils % 1 % Neutrophils # 7.0 (1.3-7.7) k/uL Lymphocytes # 1.9 (1.0-4.8) k/uL Monocytes # 0.5 (0-1.0) k/uL Eosinophils # 0.6 (0-0.7) k/uL Basophils # 0.1 (0-0.2) k/uL PT 10.3 (9.0-12.0) sec INR 1.0 (<1.2) APTT 22.6 (22.0-30.0) sec Sodium 138 (137-145) mmol/L Potassium 4.8 (3.5-5.1) mmol/L Chloride 104 (98-107) mmol/L Carbon Dioxide 22 (22-30) mmol/L Anion Gap 12 mmol/L BUN 24 H (9-20) mg/dL Creatinine 1.17 (0.66-1.25) mg/dL Est GFR (CKD-EPI)AfAm 72 (>60 ml/min/1.73 sqM) Est GFR (CKD-EPI)NonAf 62 (>60 ml/min/1.73 sqM) Glucose 109 H (74-99) mg/dL Calcium 9.7 (8.4-10.2) mg/dL Magnesium 1.7 (1.6-2.3) mg/dL Total Bilirubin 0.7 (0.2-1.3) mg/dL AST 37 (17-59) U/L ALT 23 (4-49) U/L Alkaline Phosphatase 99 (38-126) U/L Troponin I (0.000-0.034) ng/mL Total Protein 7.7 (6.3-8.2) g/dL Albumin 4.4 (3.5-5.0) g/dL Lipase 222 (23-300) U/L 01/30/21 Range/Units 12:34 WBC (3.8-10.6) k/uL RBC (4.30-5.90) m/uL Hgb (13.0-17.5) gm/dL Hct (39.0-53.0) % MCV (80.0-100.0) fL MCH (25.0-35.0) pg MCHC (31.0-37.0) g/dL RDW (11.5-15.5) % Plt Count (150-450) k/uL MPV Neutrophils % % Lymphocytes % % Monocytes % % Eosinophils % % Basophils % % Neutrophils # (1.3-7.7) k/uL Lymphocytes # (1.0-4.8) k/uL Monocytes # (0-1.0) k/uL Eosinophils # (0-0.7) k/uL Basophils # (0-0.2) k/uL PT (9.0-12.0) sec INR (<1.2) APTT (22.0-30.0) sec Sodium (137-145) mmol/L Potassium (3.5-5.1) mmol/L Chloride (98-107) mmol/L Carbon Dioxide (22-30) mmol/L Anion Gap mmol/L BUN (9-20) mg/dL Creatinine (0.66-1.25) mg/dL Est GFR (CKD-EPI)AfAm (>60 ml/min/1.73 sqM) Est GFR (CKD-EPI)NonAf (>60 ml/min/1.73 sqM) Glucose (74-99) mg/dL Calcium (8.4-10.2) mg/dL Magnesium (1.6-2.3) mg/dL Total Bilirubin (0.2-1.3) mg/dL AST (17-59) U/L ALT (4-49) U/L Alkaline Phosphatase (38-126) U/L Troponin I <0.012 (0.000-0.034) ng/mL Total Protein (6.3-8.2) g/dL Albumin (3.5-5.0) g/dL Lipase (23-300) U/L - Radiology Data Radiology results: report reviewed, image reviewed Two-view x-ray of the chest is obtained. Report is reviewed in its entirety. Impression by Dr. Lubin shows no acute cardio pulmonary process . Disposition Clinical Impression: Left arm pain, Anginal equivalent Disposition: ADMITTED IP TO THIS [facility] Condition: Serious Referrals: Pawel Kathleen MD [Primary Care Provider] - 1-2 days Decision to Admit Reason: Admit from EC Decision Date: 01/30/21 Decision Time: 14:50
[2021-01-30 12:51] LABS: Basophils # (A) 0.1 k/uL (0-0.2); Basophils % (A) 1 %; Eosinophils # (A) 0.6 k/uL (0-0.7); Eosinophils % (A) 6 %; HGB 13.9 gm/dL (13.0-17.5); Lymphocytes # (A) 1.9 k/uL (1.0-4.8); Lymphocytes % (A) 18 %; MCH 30.5 pg (25.0-35.0); MCV 92.3 fL (80.0-100.0); Mean Platelet Volume 8.2; Monocytes # (A) 0.5 k/uL (0-1.0); Monocytes % (A) 5 %; Neutrophils % (A) 70 %; Platelet Count 277 k/uL (150-450); RBC 4.55 m/uL (4.30-5.90); RDW 13.6 % (11.5-15.5); WBC 10.1 k/uL (3.8-10.6)
[2021-01-30 13:06] LABS: Partial Thromboplastin Time 22.6 sec (22.0-30.0); Prothrombin Time 10.3 sec (9.0-12.0)
[2021-01-30 13:11] LABS: Albumin 4.4 g/dL (3.5-5.0); Calcium 9.7 mg/dL (8.4-10.2); Magnesium 1.7 mg/dL (1.6-2.3); Potassium 4.8 mmol/L (3.5-5.1); Total Bilirubin 0.7 mg/dL (0.2-1.3); Total Protein 7.7 g/dL (6.3-8.2)
--- NOTE | 2021-01-30 13:37 | XR ---
EXAMINATION TYPE: XR chest 2V DATE OF EXAM: 01/30/2021 COMPARISON: Chest x-ray 04/04/2018 HISTORY: Chest pain TECHNIQUE: Frontal and lateral views of the chest are obtained. FINDINGS: There is no focal air space opacity, pleural effusion, or pneumothorax seen. The cardiac silhouette size is within normal limits. Patient is post median sternotomy. There are overlying artif acts. The osseous structures are intact. IMPRESSION: No acute cardiopulmonary process.
[2021-01-30] MEDS ORDERED: NALOXONE 0.4 MG/ML 1 ML VIAL IV PRN (14:45)
[2021-01-30] MEDS ORDERED: ASPIRIN 81 MG PO STA (14:48)
[2021-01-30 17:23] LABS: Glucose,Whole Blood 116 mg/dL (75-99)
[2021-01-30] MEDS ORDERED: ALPRAZolam 0.25 MG TAB PO PRN (18:56)
[2021-01-30] MEDS ORDERED: HYDROcodone/APAP 5-325MG 1 EACH TAB PO PRN (18:56)
--- NOTE | 2021-01-30 19:58 | HP ---
HISTORY AND PHYSICAL DATE OF SERVICE: 01/30/2021 CHIEF COMPLAINTS: Left-sided neck and arm pain. HISTORY OF PRESENT ILLNESS: This 70-year-old gentleman with a past medical history of multiple medical problems, including COPD, diabetes mellitus, hypertension, hyperlipidemia, history of DJD, hypothyroidism, history of CAD, CABG, being followed by Dr. Pawel Kathleen in the outpatient setting, was complaining of on and off pains on the left neck as well as radiating to the left shoulder and left arm. The patient apparently took some nitroglycerin, with significant relief. The patient also tried some local pain spray, with not much relief, and because of the concerns of coronary artery disease, the patient came to [facility] and is being admitted for further evaluation and treatment. The initial troponins are negative. COVID-19 is also negative. There is no history of any fever, rigor or chills. No history of headache, loss of consciousness, seizures at this time. PAST MEDICAL HISTORY: History of CAD, CABG, COPD, diabetes mellitus, hypertension, hyperlipidemia. MEDICATIONS PRIOR TO ADMISSION: Flomax 0.2 daily, Zoloft, Zestril, Synthroid, Norvasc, Lasix, Ultram, Glucophage, Imdur, Ultram, Pravachol, Klor-Con, Lopressor, Glucophage. ALLERGIES: IODINE-CONTAINING DYES. FAMILY HISTORY: History of myocardial infarction. SOCIAL HISTORY: Previous history of smoking. No current smoking or alcohol intake. REVIEW OF SYSTEMS: ENT: No diminished hearing. No diminished vision. CARDIOVASCULAR SYSTEM: As mentioned earlier. RESPIRATORY SYSTEM: As mentioned earlier. GI: No nausea, vomiting. : No dysuria or retention. NERVOUS SYSTEM: As mentioned earlier. ALLERGY/IMMUNOLOGY: No asthma, hayfever. MUSCULOSKELETAL: As mentioned earlier. HEMATOLOGY/ONCOLOGY: No history of anemia. ENDOCRINE: As mentioned earlier. CONSTITUTIONAL: As mentioned earlier. DERMATOLOGY: Negative. RHEUMATOLOGY: Negative. PSYCHIATRY: Negative. PHYSICAL EXAMINATION: Patient is alert, oriented x3. Pulse 59, blood pressure 118/77, respirations 17, temperature 98 degrees, pulse ox 98% on room air. HEENT: Conjunctivae normal. NECK: No jugular venous distention. CARDIOVASCULAR SYSTEM: S1, S2 muffled. RESPIRATORY SYSTEM: Breath sounds diminished at the bases. No rhonchi. No crackles. ABDOMEN: Soft, non-tender. No mass palpable. LEGS: No edema. No swelling. NERVOUS SYSTEM: Higher functions as mentioned earlier. Moves all 4 limbs. No focal motor or sensory deficit. LYMPHATICS: No lymph node palpable in neck, axillae or groin. SKIN: No ulcer, rash, bleeding. JOINTS: No active deforming arthropathy. LABS: CBC within normal limits. Glucose 109, 116. ASSESSMENT: 1. Chest and left upper arm and neck pain, possible unstable angina. 2. Chronic obstructive pulmonary disease. 3. Diabetes mellitus, type 2. 4. Hypertension. 5. Hyperlipidemia. 6. History of degenerative joint disease. 7. History of coronary artery disease, coronary artery bypass grafting. 8. Remote history of nicotine dependence. 9. Obesity with body mass index of 32.6. 10.FULL CODE. RECOMMENDATIONS AND DISCUSSION: In this 70-year-old gentleman who presented with multiple complex medical issues, we will monitor the patient closely, continue the current medications, continue with symptomatic treatment. Otherwise, rule out myocardial infarction. Unstable angina protocol. Cardiology. Home medications will be reviewed and continued. Prognosis is guarded because of multiple complex medical issues. Further recommendations to follow. A copy of this dictation is being forwarded to Dr. Yoseph Kathleen, who is the primary physician. MMODL / IJN: [id number] / [facility]
[2021-01-30] MEDS ORDERED: traMADol 50 MG TAB PO SCH (21:00)
[2021-01-30] MEDS ORDERED: metFORMIN 500 MG TAB PO SCH (21:00)
[2021-01-30] MEDS ORDERED: amLODIPine 5 MG TAB PO SCH (21:00)
[2021-01-30] MEDS ORDERED: POTASSIUM CHLORIDE ER 10 MEQ TAB.ER.PRT PO SCH (21:00)
[2021-01-30] MEDS ORDERED: PRAVASTATIN SODIUM 20 MG TAB PO SCH (21:00)
[2021-01-30 22:09] LABS: Glucose,Whole Blood 90 mg/dL (75-99)
[2021-01-31 01:49] VITALS: PULSE 64
[2021-01-31] MEDS ORDERED: LEVOTHYROXINE 112 MCG TAB PO SCH (06:30)
[2021-01-31] MEDS ORDERED: metFORMIN 500 MG TAB PO SCH (07:30)
[2021-01-31] MEDS ORDERED: PANTOPRAZOLE 40 MG TABLET PO SCH (07:30)
[2021-01-31 07:39] LABS: Glucose,Whole Blood 103 mg/dL (75-99)
[2021-01-31 08:07] VITALS: BP 154/83; RESP 18; TEMP 98.2
[2021-01-31] MEDS: ASPIRIN 325 MG TAB PO SCH ×2 (08:25→08:31)
[2021-01-31] MEDS ORDERED: FUROSEMIDE 20 MG TAB PO SCH (09:00)
[2021-01-31] MEDS ORDERED: ISOSORBIDE MONONITRATE ER 60 MG TAB.ER.24H PO SCH (09:00)
[2021-01-31] MEDS ORDERED: ASPIRIN 81 MG PO SCH (09:00)
[2021-01-31] MEDS ORDERED: METOPROLOL TARTRATE 50 MG TAB PO SCH (09:00)
[2021-01-31] MEDS ORDERED: TAMSULOSIN 0.4 MG CAP.ER.24H PO SCH (09:00)
[2021-01-31] MEDS ORDERED: lisinopriL 10 MG TAB PO SCH (09:00)
[2021-01-31] MEDS ORDERED: SERTRALINE 25 MG TAB PO SCH (09:00)
[2021-01-31] MEDS ORDERED: traMADol 50 MG TAB PO SCH (09:00)
--- NOTE | 2021-01-31 09:32 | P.CRDCN ---
History of Present Illness Consult date: 01/31/21 History of present illness: HISTORY OF PRESENT ILLNESS: This is a 70-year-old male with a past medical history significant for diabetes mellitus, COPD, hypertension, hyperlipidemia, coronary artery disease with previous PCI and subsequent CABG 2 in 2002. Patient follows with a product development worker in [place], Dr. Franco. We have been asked to see the patient in consultation for chest pain. Patient examined at the bedside. Patient states he has been having left arm and shoulder pain intermittently for the past week. He states he initially thought this was due to may be a pinched nerve so he did not seek medical attention right away. He states he has been having very mild intermittent chest pressure over the past week as well. He denies shortness of breath. Denies dizziness or lightheadedness. Denies cough or congestion. At the time of examination, the patient denies chest pain or pressure. EKG reveals sinus mechanism with right bundle branch block, unchanged compared to patient's EKG from his cardiology office. Chest xray no acute cardio pulmonary process. Laboratory data: WBC 10.1, Hemoglobin 13.9, Platelet count 277, Sodium 138, Potassium 4.8, BUN 24, Creatinine 0.17, Troponin 3 Current home cardiac medications include lisinopril 10 mg daily, amlodipine 5 mg at night, 20 mg daily, Imdur 60 mg daily, Arava statin 20 mg daily, metoprolol tartrate 100 mg daily. Most recent echocardiogram obtained in August 2020 at his cardiology office reveals ejection fraction of 55%. Patient underwent Lexiscan stress test in September 2020 at his cardiology office which was negative for stressed induced ischemia REVIEW OF SYSTEMS: At the time of my exam: CONSTITUTIONAL: Denies fever or chills. HEENT: Denies blurred vision, vision changes, or eye pain. Denies hemoptysis CARDIOVASCULAR: Denies chest pain. Denies orthopnea. Denies PND. Denies palpitations RESPIRATORY: Denies shortness of breath. GASTROINTESTINAL: Denies abdominal pain. Denies nausea or vomiting. HEMATOLOGIC: Denies bleeding disorders. GENITOURINARY: Denies any blood in urine. SKIN: Denies pruitis. Denies rash. PHYSICAL EXAM: VITAL SIGNS: Reviewed. GENERAL: Well-developed in no acute distress. HEENT: Head is normocephalic. Pupils are equal, round. Sclerae anicteric. Mucous membranes of the mouth are moist. Neck supple. No JVD or thyromegaly LUNGS: Respirations even and unlabored. Lungs essentially clear to auscultation bilaterally. HEART: Regular rate and rhythm. S1 and S2 heard. ABDOMEN: Soft. Nondistended. Nontender. EXTREMITIES: Normal range of motion. No clubbing or cyanosis. Peripheral pulses intact. No lower extremity edema NEUROLOGIC: Awake and alert. Oriented x 3. ASSESSMENT: Chest pain, atypical, troponin negative 3 Left arm and shoulder pain Hypertension Hyperlipidemia COPD Coronary artery disease with previous PCI and subsequent CABG 2 in 2002 PLAN: An acute coronary event has been ruled out Resume home cardiac medications EKG reviewed and unchanged from previous EKG obtained at his cardiology office Patient with recent negative stress test in September 2020 Obtain 2-D echo to assess cardiac structure and function. If no significant LV wall abnormalities, the patient may be discharged home today and follow up with his product development worker, Dr. Franco, in [place] Nurse practitioner note has been reviewed by physician. Signing provider agrees with the documented findings, assessment, and plan of care. Past Medical History Past Medical History: Chest Pain / Angina, COPD, Diabetes Mellitus, Hyperlipidemia, Hypertension, Osteoarthritis (OA), Thyroid Disorder Additional Past Medical History / Comment(s): ARTHRITIS LOWER BACK & HIPS History of Any Multi-Drug Resistant Organisms: None Reported Past Surgical History: Coronary Bypass/CABG, Heart Catheterization, [place] ctomy Additional Past Surgical History / Comment(s): kidney stones X 14- (LARGE KIDNEY STONE REMOVED 1980)HEART CATH X 3, DOUBLE BYPASS(CABG) 2002 Past Anesthesia/Blood Transfusion Reactions: Previous Problems w/ Anesthesia Additional Past Anesthesia/Blood Transfusion Reaction / Comment(s): PT WAS TOLD "HARD TO INTUBATE" Past Psychological History: No Psychological Hx Reported Additional Psychological History / Comment(s): Lives at home with Smoking Status: Former smoker Past Alcohol Use History: Rare Additional Past Alcohol Use History / Comment(s): QUIT SMOKING 2002- SMOKES ABOUT 20 YRS OFF & ON 1/2-1 PPD Past Drug Use History: None Reported - Past Family History Mother Family Medical History: Myocardial Infarction ([place]) Additional Family Medical History / Comment(s): @ AGE 41 [place] Father Family Medical History: Diabetes Mellitus Additional Family Medical History / Comment(s): @ AGE 78 BLOCKAGE IN PANCREATIC DUCT Medications and Allergies Home Medications Medication Instructions Recorded Confirmed Type Isosorbide Mononitrate ER [Imdur] 60 mg PO DAILY 10/21/15 01/30/21 History Potassium Chloride [Klor-Con 10] 10 meq PO HS 10/21/15 01/30/21 History Pravastatin Sodium [Pravachol] 20 mg PO HS 10/21/15 01/30/21 History traMADol HCL [Ultram] 100 mg PO QAM 10/21/15 01/30/21 History metFORMIN HCL [Glucophage] 1,000 mg PO QAM 08/27/16 01/30/21 History Furosemide [Lasix] 20 mg PO DAILY 01/30/21 01/30/21 History Levothyroxine Sodium [Synthroid] 112 mcg PO DAILY 01/30/21 01/30/21 History Lisinopril [Zestril] 10 mg PO DAILY 01/30/21 01/30/21 History Metoprolol Tartrate [Lopressor] 100 mg PO DAILY 01/30/21 01/30/21 History Sertraline HCl [Zoloft] 75 mg PO DAILY 01/30/21 01/30/21 History Tamsulosin HCl [Flomax] 0.4 mg PO DAILY 01/30/21 01/30/21 History amLODIPine [Norvasc] 5 mg PO HS 01/30/21 01/30/21 History metFORMIN HCL [Glucophage] 500 mg PO HS 01/30/21 01/30/21 History traMADol HCL 50 mg PO HS 01/30/21 01/30/21 History Allergies Allergy/AdvReac Type Severity Reaction Status Date / Time Iodine and Iodide Containing Allergy Rash/Hives Verified 01/30/21 12:04 Produc Physical Exam Vitals: Vital Signs Temp Pulse Pulse Resp BP BP Pulse Ox 01/31/21 07:00 98.2 F 64 18 154/83 98 01/31/21 01:44 97.8 F 64 16 135/79 96 01/30/21 20:00 98.1 F 59 L 17 157/83 97 01/30/21 17:22 98 F 59 L 17 118/77 98 01/30/21 16:56 98.1 F 62 16 138/78 98 01/30/21 13:57 97.6 F 62 16 138/78 99 01/30/21 11:59 98.9 F 69 17 151/83 97 Intake and Output 01/30/21 01/31/21 01/31/21 22:59 06:59 14:59 Intake Total 588 Balance 588 Intake: Oral 588 Other: Voiding Method Toilet # Voids 2 3 # Bowel Movements 1 Weight 97.522 kg Results 01/30/21 12:34 01/30/21 12:34 Cardiac Enzymes 01/30/21 01/30/21 01/30/21 Range/Units 12:34 12:34 15:30 AST 37 (17-59) U/L Troponin I <0.012 <0.012 (0.000-0.034) ng/mL 01/30/21 Range/Units 18:02 AST (17-59) U/L Troponin I <0.012 (0.000-0.034) ng/mL Coagulation 01/30/21 Range/Units 12:34 PT 10.3 (9.0-12.0) sec APTT 22.6 (22.0-30.0) sec CBC 01/30/21 Range/Units 12:34 WBC 10.1 (3.8-10.6) k/uL RBC 4.55 (4.30-5.90) m/uL Hgb 13.9 (13.0-17.5) gm/dL Hct 42.0 (39.0-53.0) % Plt Count 277 (150-450) k/uL Comprehensive Metabolic Panel 01/30/21 Range/Units 12:34 Sodium 138 (137-145) mmol/L Potassium 4.8 (3.5-5.1) mmol/L Chloride 104 (98-107) mmol/L Carbon Dioxide 22 (22-30) mmol/L BUN 24 H (9-20) mg/dL Creatinine 1.17 (0.66-1.25) mg/dL Glucose 109 H (74-99) mg/dL Calcium 9.7 (8.4-10.2) mg/dL AST 37 (17-59) U/L ALT 23 (4-49) U/L Alkaline Phosphatase 99 (38-126) U/L Total Protein 7.7 (6.3-8.2) g/dL Albumin 4.4 (3.5-5.0) g/dL Current Medications Generic Name Dose Route Start Last Admin Trade Name Freq PRN Reason Stop Dose Admin Hydrocodone Bitart/Acetaminophen 1 each 01/30/21 18:56 Hydrocodone/Apap 5-325mg 1 Each Tab PO Q6HR PRN Pain Alprazolam 0.25 mg 01/30/21 18:56 Alprazolam 0.25 Mg Tab PO TID PRN Anxiety Amlodipine Besylate 5 mg 01/30/21 21:00 01/30/21 22:11 Amlodipine 5 Mg Tab PO 5 mg HS LEILA Administration Aspirin 81 mg 01/31/21 09:00 01/31/21 08:41 Aspirin 81 Mg PO 81 mg DAILY LEILA Administration Furosemide 20 mg 01/31/21 09:00 01/31/21 08:25 Furosemide 20 Mg Tab PO 20 mg DAILY LEILA Administration Isosorbide Mononitrate 60 mg 01/31/21 09:00 01/31/21 08:25 Isosorbide Mononitrate Er 60 Mg Tab.Er.24h PO 60 mg DAILY LEILA Administration Levothyroxine Sodium 112 mcg 01/31/21 06:30 01/31/21 05:50 Levothyroxine 112 Mcg Tab PO 112 mcg DAILY@0630 LEILA Administration Lisinopril 10 mg 01/31/21 09:00 01/31/21 08:25 Lisinopril 10 Mg Tab PO 10 mg DAILY LEILA Administration Metformin HCl 1,000 mg 01/31/21 07:30 01/31/21 08:24 Metformin 500 Mg Tab PO 1,000 mg AC-[id number] LEILA Administration Metformin HCl 500 mg 01/30/21 21:00 01/30/21 22:10 Metformin 500 Mg Tab PO 500 mg HS LEILA Administration Metoprolol Tartrate 100 mg 01/31/21 09:00 01/31/21 08:27 Metoprolol Tartrate 50 Mg Tab PO 100 mg DAILY LEILA Administration Naloxone HCl 0.2 mg 01/30/21 14:45 Naloxone 0.4 Mg/Ml 1 Ml Vial IV Q2M PRN Opioid Reversal Pantoprazole Sodium 40 mg 01/31/21 07:30 01/31/21 08:24 Pantoprazole 40 Mg Tablet PO 40 mg AC-BRKFST LEILA Administration Potassium Chloride 10 meq 01/30/21 21:00 01/30/21 22:09 Potassium Chloride Er 10 Meq Tab.Er.Prt PO 10 meq HS LEILA Administration Pravastatin Sodium 20 mg 01/30/21 21:00 01/30/21 22:12 Pravastatin Sodium 20 Mg Tab PO 20 mg HS LEILA Administration Sertraline HCl 75 mg 01/31/21 09:00 01/31/21 08:25 Sertraline 25 Mg Tab PO 75 mg DAILY LEILA Administration Tamsulosin HCl 0.4 mg 01/31/21 09:00 01/31/21 08:27 Tamsulosin 0.4 Mg Cap.Er.24h PO 0.4 mg DAILY LEILA Administration Tramadol HCl 100 mg 01/31/21 09:00 01/31/21 08:25 Tramadol 50 Mg Tab PO 100 mg QAM LEILA Administration Tramadol HCl 50 mg 01/30/21 21:00 01/30/21 22:11 Tramadol 50 Mg Tab PO 50 mg HS LEILA Administration Intake and Output 01/30/21 01/31/21 01/31/21 22:59 06:59 14:59 Intake Total 588 Balance 588 Intake: Oral 588 Other: Voiding Method Toilet # Voids 2 3 # Bowel Movements 1 Weight 97.522 kg 01/30/21 12:34 01/30/21 12:34
[2021-01-31 10:52] LABS: Basophils # (A) 0.06 X 10*3/uL (0.00-0.10); Basophils % (A) 0.7 %; Eosinophils # (A) 0.54 X 10*3/uL (0.04-0.35); Eosinophils % (A) 6.2 %; HCT 40.5 % (39.6-50.0); HGB 12.9 g/dL (13.0-17.0); Lymphocytes # (A) 2.84 X 10*3/uL (0.90-5.00); Lymphocytes % (A) 32.6 %; MCH 30.8 pg (27.0-32.0); MCHC 31.9 g/dL (32.0-37.0); MCV 96.7 fL (80.0-97.0); Mean Platelet Volume 11.6 fL (9.5-12.2); Monocytes # (A) 0.69 X 10*3/uL (0.20-1.00); Monocytes % (A) 7.9 %; Neutrophils # (A) 4.56 X 10*3/uL (1.80-7.70); Neutrophils % (A) 52.5 %; Platelet Count 248 X 10*3/uL (140-440); RBC 4.19 X 10*6/uL (4.40-5.60); RDW 13.4 % (11.5-14.5)
--- NOTE | 2021-01-31 11:00 | ECHOF ---
Referral Reason:LV function, chest pain MEASUREMENTS -------- HEIGHT: 170.2 cm WEIGHT: 97.5 kg BP: 154/83 RVIDd: 3.4 cm (< 3.3) IVSd: 1.4 cm (0.6 - 1.1) LVIDd: 3.9 cm (3.9 - 5.3) LVPWd: 1.4 cm (0.6 - 1.1) IVSs: 1.7 cm LVIDs: 2.8 cm LVPWs: 1.9 cm LA Diam: 3.5 cm (2.7 - 3.8) LAESV Index (A-L): 20.84 ml/m Ao Diam: 3.3 cm (2.0 - 3.7) AV Cusp: 2.1 cm (1.5 - 2.6) MV EXCURSION: 13.189 mm (> 18.000) MV EF SLOPE: 33 mm/s (70 - 150) EPSS: 0.8 cm MV E Juni: 0.80 m/s MV DecT: 320 ms MV A Juni: 1.10 m/s MV E/A Ratio: 0.73 FINDINGS -------- Resting bradycardia (HR<60bpm). This was a technically difficult study with suboptimal apical views. The left ventricular size is normal. There is moderate concentric left ventricular hypertrophy. O verall left ventricular systolic function is normal with, an EF between 60 - 65 %. The right ventricle is mildly enlarged. Normal LA size by volume 22+/-6 ml/m2. The right atrium is normal in size. 3 ml of Lumason was utilized for enhancement of images. There is mild aortic valve sclerosis. Mild mitral annular calcification present. Trace tricuspid regurgitation present. There is no pulmonic regurgitation present. The aortic root size is normal. IVC Not well visulized. There is no pericardial effusion. CONCLUSIONS -------- 1. The left ventricular size is normal. 2. There is moderate concentric left ventricular hypertrophy. 3. Overall left ventricular systolic function is normal with, an EF between 60 - 65 %. 4. The right ventricle is mildly enlarged. 5. 3 ml of Lumason was utilized for enhancement of images. 6. There is mild aortic valve sclerosis. 7. Mild mitral annular calcification present. 8. Trace tricuspid regurgitation present. 9. There is no pericardial effusion. PROC TECH: Cecelia Wade RDCS
[2021-01-31 11:50] LABS: Glucose,Whole Blood 111 mg/dL (75-99)
[2021-01-31 12:30] LABS: African American GFR (CKD) 70.1 (60.0-200.0); Anion Gap 9.9 mmol/L (4.00-12.00); BUN/Creat Ratio 22.5 Ratio (12.00-20.00); Calcium 9.3 mg/dL (8.7-10.3); Carbon Dioxide 26.1 mmol/L (21.6-31.8); Non-African American GFR(CKD) 60.5 (60.0-200.0); Potassium 4.2 mmol/L (3.5-5.5)
--- NOTE | 2021-01-31 13:32 | P.DS ---
Providers Date of admission: 01/30/21 15:20 Expected date of discharge: 01/31/21 Attending physician: Saira Carbajal Consults: 01/30/21 14:45 Consult Physician Routine Consulting Provider: [facility] Consult Reason/Comments: Left arm pain; anginal equivalent Do you want consulting provider notified?: Yes Primary care physician: Pawel Kathleen MD Hospital Course: Final diagnosis Chest and left upper arm and neck pain, possible unstable angina Chronic obstructive pulmonary disease Diabetes mellitus type 2 Hypertension Hyperlipidemia History of degenerative joint disease history of coronary artery disease Coronary artery bypass grafting remote history of nicotine dependence Obesity with body mass index of 32.6 Full code Discharge disposition Patient is being discharged in a stable condition with guarded prognosis to home. Patient will follow-up with Dr. Pawel Kathleen upon discharge. Patient will follow-up with his technical service representative out of [facility]. Total time taken is greater than 35 minutes. Hospital course This is an 70-year-old male who was recently admitted with radiating intermittent pains on the left neck as well as radiating to the left shoulder and left arm and was being closely monitored. Patient reports to taking nitro and having relief and came here for further evaluation. Patient was seen and evaluated by cardiology and patient will be following up with his technical service representative out of [facility] upon discharge. Patient underwent 2-D echo showing moderate concentric left ventricular hypertrophy with overall left systolic function is normal with an EF between 60 and 65%. On exam today patient denies any chest pain, left arm or neck pain, shortness of breath, or palpitations. Patient follows with Dr. Pawel Kathleen in the outpatient setting and will be following up upon discharge. Currently no reports of chest pain, shortness of breath, or palpitations. Patient is afebrile. No reports of nausea or vomiting and patient is tolerating diet. Patient and guardian to discuss palliative care in the outpatient setting once returning to [facility] on [facility]. Guarded prognosis. On exam vital signs are stable. Cardio S1, S2 are muffled. Respiratory shows diminished breath sounds at the bases with no wheezing or rhonchi noted. Abdomen is soft and nontender. Nervous system shows no focal deficits. Please refer to medication reconciliation sheet for a list of medications. Patient Condition at Discharge: Stable Plan - Discharge Summary New Discharge Prescriptions: New Aspirin 81 mg PO DAILY 30 Days #30 chew Continue traMADol HCL [Ultram] 100 mg PO QAM Isosorbide Mononitrate ER [Imdur] 60 mg PO DAILY Pravastatin Sodium [Pravachol] 20 mg PO HS Potassium Chloride [Klor-Con 10] 10 meq PO HS metFORMIN HCL [Glucophage] 1,000 mg PO QAM metFORMIN HCL [Glucophage] 500 mg PO HS Metoprolol Tartrate [Lopressor] 100 mg PO DAILY traMADol HCL 50 mg PO HS amLODIPine [Norvasc] 5 mg PO HS Furosemide [Lasix] 20 mg PO DAILY Levothyroxine Sodium [Synthroid] 112 mcg PO DAILY Sertraline HCl [Zoloft] 75 mg PO DAILY Lisinopril [Zestril] 10 mg PO DAILY Tamsulosin HCl [Flomax] 0.4 mg PO DAILY Discharge Medication List Isosorbide Mononitrate ER [Imdur] 60 mg PO DAILY 10/21/15 [History] Potassium Chloride [Klor-Con 10] 10 meq PO HS 10/21/15 [History] Pravastatin Sodium [Pravachol] 20 mg PO HS 10/21/15 [History] traMADol HCL [Ultram] 100 mg PO QAM 10/21/15 [History] metFORMIN HCL [Glucophage] 1,000 mg PO QAM 08/27/16 [History] Furosemide [Lasix] 20 mg PO DAILY 01/30/21 [History] Levothyroxine Sodium [Synthroid] 112 mcg PO DAILY 01/30/21 [History] Lisinopril [Zestril] 10 mg PO DAILY 01/30/21 [History] Metoprolol Tartrate [Lopressor] 100 mg PO DAILY 01/30/21 [History] Sertraline HCl [Zoloft] 75 mg PO DAILY 01/30/21 [History] Tamsulosin HCl [Flomax] 0.4 mg PO DAILY 01/30/21 [History] amLODIPine [Norvasc] 5 mg PO HS 01/30/21 [History] metFORMIN HCL [Glucophage] 500 mg PO HS 01/30/21 [History] traMADol HCL 50 mg PO HS 01/30/21 [History] Aspirin 81 mg PO DAILY 30 Days #30 chew 01/31/21 [Rx] Follow up Appointment(s)/Referral(s): Pawel Kathleen MD [Primary Care Provider] - 1-2 days Patient Instructions/Handouts: Arm Pain (ED) Activity/Diet/Wound Care/Special Instructions: Activity Limited until follow-up Follow-up with primary care provider upon discharge Follow-up cardiology outpatient Continue heart healthy consistent carb diabetic diet Monitor blood sugars and keep a diary for primary care follow-up Discharge Disposition: HOME SELF-CARE
== END 2021-01-31 13:47 | disposition home or self-care (01) ==
LOC: EC 11:56 → 6NMEDSUR 15:20
PROVIDERS: ADMIT Hospitalist; ATTEND Hospitalist
DX: R07.89 Other chest pain (principal); M54.2 Cervicalgia; M79.622 Pain in left upper arm; M25.512 Pain in left shoulder; I25.10 Atherosclerotic heart disease of native coronary artery without angina pectoris; I45.10 Unspecified right bundle-branch block; I10 Essential (primary) hypertension; E11.9 Type 2 diabetes mellitus without complications; E78.5 Hyperlipidemia, unspecified; E03.9 Hypothyroidism, unspecified; J44.9 Chronic obstructive pulmonary disease, unspecified; M47.816 Spondylosis without myelopathy or radiculopathy, lumbar region; M16.0 Bilateral primary osteoarthritis of hip; Z20.822 Contact with and (suspected) exposure to COVID-19; E66.9 Obesity, unspecified; Z68.32 Body mass index [BMI] 32.0-32.9, adult; Z79.890 Hormone replacement therapy; Z79.82 Long term (current) use of aspirin; Z79.899 Other long term (current) drug therapy; Z79.84 Long term (current) use of oral hypoglycemic drugs; Z79.891 Long term (current) use of opiate analgesic; Z91.048 Other nonmedicinal substance allergy status; Z95.5 Presence of coronary angioplasty implant and graft; Z95.1 Presence of aortocoronary bypass graft; Z87.442 Personal history of urinary calculi; Z87.891 Personal history of nicotine dependence; Z82.49 Family history of ischemic heart disease and other diseases of the circulatory system; Z83.3 Family history of diabetes mellitus; Z83.79 Family history of other diseases of the digestive system
CPT/HCPCS: 93005 ×2; 99284; 36415; 80053; 80048; 83690; 83735; 84484; 85025 ×2; 85610; 85730; 87635; 71046; G0378 ×2; C8929; Q9950; 93306

== ENCOUNTER 2021-05-08 07:55 | Day surgery (SDC) | payer MEDICARE ==
[2021-05-06 13:00] VITALS: BMI 32.7
[~2021-05-08 07:55] MED LIST: MOXIFLOXACIN HCL 0.5% DROPS 3 ML BTL OP PRN; TETRACAINE 0.5% OPHTH (PF) DROPS 4 ML BTL OP PRN; TIMOLOL 0.5% OPHTH DROPS 5 ML BTL OP PRN
[2021-05-08 08:24] VITALS: TEMP 97.3
[2021-05-08] MEDS: CYCLOPENTOLATE 1% OPHTH SOLN 2 ML BTL OP PRN ×3 (08:35→08:46)
[2021-05-08] MEDS: PHENYLEPHRINE 2.5% OPHTH DRP 2ML OP PRN ×3 (08:35→08:49)
[2021-05-08] MEDS ORDERED: LACTATED RINGERS 1,000 ML IV ONE (08:40)
[2021-05-08 08:45] LABS: Glucose,Whole Blood 125 mg/dL (75-99)
[2021-05-08] MEDS ORDERED: MIDAZOLAM 2 MG/2 ML VIAL ONE (09:42)
[2021-05-08] MEDS ORDERED: fentaNYL (PF) 50 MCG/ML 2 ML AMP ONE (09:42)
[2021-05-08] MEDS ORDERED: EPINEPHrine (PF) 0.3 ML in BALANCED SALT IRRIG SOLN COMB2 500 ML IRRIGATION ONE (09:54)
[2021-05-08] MEDS ORDERED: HYALURONATE SODIUM INTRAOCULAR 1 EACH SYRINGE (12MG/ML) INTRAOCULA ONE (09:56)
[2021-05-08] MEDS ORDERED: LIDOCAINE 1% (PF) 10MG/ML VIAL MISCELLANE ONE (09:56)
[2021-05-08] MEDS ORDERED: BALANCED SALT IRRIG SOLN COMB2 15 ML IRRIG.SOLN INTRAOCULA ONE (09:56)
--- NOTE | 2021-05-08 10:13 | P.OP ---
Date of Procedure: 05/08/21 Preoperative Diagnosis: NS & CS & PSC Postoperative Diagnosis: same w/ Flomax (floppy iris) Procedure(s) Performed: PIOL, OD Implants: [id number] 17.00 Anesthesia: MAC Surgeon: Guerrero Cortez Pathology: none sent Condition: stable Disposition: same day Indications for Procedure: blurry vision Operative Findings: no complications
[2021-05-08 10:20] VITALS: RESP 16
[2021-05-08 10:47] VITALS: BP 114/72; PULSE 62
--- NOTE | 2021-05-10 07:12 | OP ---
OPERATIVE REPORT DATE OF SERVICE: 05/08/2021 PROCEDURE: Phacoemulsification of cataract and intraocular lens implant of the right eye. PREOPERATIVE DIAGNOSES: Nuclear sclerosis, cortical sclerosis and posterior subcapsular cataract with exposure to Flomax. 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 SURGEON: Dr. Guerrero Cortez. ANESTHESIA: Topical. ESTIMATED BLOOD LOSS: None. SPECIMEN: None. NARRATIVE: After obtaining the appropriate consent, the patient was brought to the operating room. There he was placed under cardiac monitoring prepped and draped in the usual sterile manner. He was approached from his right temporal side and at the 11 o'clock position, an MVR blade was used to create a paracentesis port. Through this opening 1% Xylocaine MPF with 1:1000 epinephrine MPF and balanced salt solution in a ratio of 1:2:1 was instilled into the anterior chamber. This was then followed by stabilization of the anterior chamber with Amvisc. It was apparent at this point in time that the dilation of the pupil was inappropriate and irregular confirming the likelihood of floppy iris syndrome. At the 9 o'clock position, a 2.5 mm keratome was used to create a self- sealing corneal flap incision. Through this opening, a 7 mm Malyugin ring was then inserted on the pupillary sphincter to ensure and maintain proper dilation and control of the iris stroma. This was followed by a cystotome which was used to begin a continuous tear capsulorrhexis which was then completed using the Utrata forceps. Hydrodissection and hydrodelineation of the lens was accomplished with balanced salt solution. Phacoemulsification of the lens utilizing phaco chop was accomplished in 13.04 seconds at 18% power. Additional Xylocaine MPF mixture was instilled into the anterior chamber. This was followed by removal of the remaining cortex under irrigation and aspiration, as well as careful polishing of the posterior capsule in the capsular vacuum mode. Amvisc was then used to stabilize the capsular bag and a Bausch [employer] Lomb MX 60 E 17.0 diopter posterior chamber intraocular lens was then injected into the capsular bag without difficulty. The Malyugin ring was then disinserted from the pupillary sphincter and irrigation and aspiration of as much viscoelastic from in and around the intra-ocular lens as well as the anterior chamber was accomplished without difficulty. The eye was then brought to normal intraocular pressure through the paracentesis port with balanced salt solution followed by confirmation of watertight integrity of the corneal scleral incisions. He then received 2 drops of 0.5% moxifloxacin as well as 0.5% timolol. He was then lightly patched and shielded in the usual manner. There were no complications from the procedure. He tolerated the procedure well and returned to home in good condition. MMODL / FELICITAN: [id number] /
== END 2021-05-08 11:15 | disposition home or self-care (01) ==
LOC: OR 07:55
PROVIDERS: ATTEND Ophthalmology
DX: H25.13 Age-related nuclear cataract, bilateral (principal); H25.013 Cortical age-related cataract, bilateral; E11.36 Type 2 diabetes mellitus with diabetic cataract; H21.81 Floppy iris syndrome; H04.129 Dry eye syndrome of unspecified lacrimal gland; H43.393 Other vitreous opacities, bilateral; H52.223 Regular astigmatism, bilateral; H00.023 Hordeolum internum right eye, unspecified eyelid; H00.026 Hordeolum internum left eye, unspecified eyelid; H25.043 Posterior subcapsular polar age-related cataract, bilateral; H52.4 Presbyopia; H52.13 Myopia, bilateral; I11.9 Hypertensive heart disease without heart failure; J45.20 Mild intermittent asthma, uncomplicated; N28.9 Disorder of kidney and ureter, unspecified; E78.5 Hyperlipidemia, unspecified; J44.9 Chronic obstructive pulmonary disease, unspecified; E07.9 Disorder of thyroid, unspecified; M19.90 Unspecified osteoarthritis, unspecified site; N20.0 Calculus of kidney; Z87.891 Personal history of nicotine dependence; Z86.19 Personal history of other infectious and parasitic diseases; R51.9 Headache, unspecified; Z95.1 Presence of aortocoronary bypass graft; Z98.890 Other specified postprocedural states; Z97.2 Presence of dental prosthetic device (complete) (partial); Z82.61 Family history of arthritis; Z80.9 Family history of malignant neoplasm, unspecified; Z83.3 Family history of diabetes mellitus; Z82.49 Family history of ischemic heart disease and other diseases of the circulatory system; Z82.3 Family history of stroke; Z83.49 Family history of other endocrine, nutritional and metabolic diseases; Z83.518 Family history of other specified eye disorder; Z79.84 Long term (current) use of oral hypoglycemic drugs; Z79.82 Long term (current) use of aspirin; Z79.890 Hormone replacement therapy; Z79.891 Long term (current) use of opiate analgesic; Z79.899 Other long term (current) drug therapy; Z91.041 Radiographic dye allergy status
CPT/HCPCS: 66984; C1780; J2250; J0171; J3010; J2001

== ENCOUNTER 2021-05-22 07:25 | Day surgery (SDC) | payer MEDICARE ==
[2021-05-20 16:14] VITALS: BMI 32.1
[~2021-05-22 07:25] MED LIST changes: +CYCLOPENTOLATE 1% OPHTH SOLN 2 ML BTL OP PRN; +LACTATED RINGERS 1,000 ML IV SCH; +LIDOCAINE 1% (10MG/ML) FOR IV START INTRADERMA PRN; +ONDANSETRON 4 MG/2 ML VIAL IVP ONE; +PHENYLEPHRINE 2.5% OPHTH DRP 2ML OP PRN
[2021-05-22 08:09] VITALS: RESP 16; TEMP 97.4
[2021-05-22 08:21] LABS: Glucose,Whole Blood 104 mg/dL (75-99)
[2021-05-22] MEDS ORDERED: MIDAZOLAM 2 MG/2 ML VIAL ONE (09:00)
[2021-05-22] MEDS ORDERED: HYALURONATE SODIUM INTRAOCULAR 1 EACH SYRINGE (12MG/ML) INTRAOCULA ONE (09:16)
[2021-05-22] MEDS ORDERED: BALANCED SALT IRRIG SOLN COMB2 15 ML IRRIG.SOLN INTRAOCULA ONE (09:16)
[2021-05-22] MEDS ORDERED: EPINEPHrine (PF) 1 MG/ML AMP SQ ONE (09:17)
[2021-05-22] MEDS ORDERED: LIDOCAINE 1% (PF) 10MG/ML VIAL SQ ONE (09:17)
[2021-05-22] MEDS ORDERED: EPINEPHrine (PF) 0.3 ML in BALANCED SALT IRRIG SOLN COMB2 500 ML IRRIGATION ONE (09:17)
--- NOTE | 2021-05-22 09:32 | P.OP ---
Date of Procedure: 05/22/21 Preoperative Diagnosis: NS & cS & PSC Postoperative Diagnosis: NS & CS & PSC Procedure(s) Performed: PIOL, OS Implants: MX60 E 16.00 Anesthesia: MAC Surgeon: Guerrero Cortez Pathology: none sent Condition: stable Disposition: same day Indications for Procedure: blurry vision Operative Findings: no complications
[2021-05-22 09:53] VITALS: BP 109/71; PULSE 59
--- NOTE | 2021-05-23 06:37 | OP ---
OPERATIVE REPORT PROCEDURE: Phacoemulsification of cataract and intraocular lens implant of the left eye. PREOPERATIVE DIAGNOSES: Nuclear sclerosis cortical sclerosis, posterior subcapsular cataract. 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 SURGEON: Dr. Guerrero Cortez. ANESTHESIA: Topical. ESTIMATED BLOOD LOSS: None. SPECIMEN: Taken none. NARRATIVE: After obtaining the appropriate consent, the patient was brought to the operating room. There he was placed on a cardiac monitoring prepped and draped in the usual sterile manner. He was approached from his left temporal side and at the 5 o'clock position an MVR blade was used to create a paracentesis port. Through this opening, 1% Xylocaine MPF 1:1000 epinephrine MPF and balanced salt solution in a ratio 1-2-1 was injected into the anterior chamber. This was followed by stabilization of the anterior chamber with Amvisc. At the 3 o'clock position, a 2.5 mm keratome was used to create a self- sealing corneal flap incision. Through this opening, due to some concerns about a poorly dilated and irregularly dilated pupil and a previous exposure to Flomax, a 7 mm Malyugin ring was inserted on the pupillary sphincter. This was followed by introduction of a cystotome to begin a continuous tear capsulorrhexis which was completed using the Utrata forceps. Hydrodissection and hydrodelineation of the lens was accomplished with balanced salt solution. Phacoemulsification lens utilizing phaco chop was accomplished at 12.84 seconds at 15% power. Additional Xylocaine MPF mixture was instilled into the anterior chamber. This was followed by careful removal of the remaining cortex as well as polishing of the posterior capsule in capsule vacuum mode. Additional Amvisc was then used to stabilize the capsular bag and a Bausch and Lomb MX 60E 16.0 diopter posterior chamber intraocular lens was inserted into the capsular bag without difficulty. The 7 mm Malyugin ring was then disinserted from the pupillary sphincter and irrigation aspiration of the remaining viscoelastic from the anterior chamber and as closely as possible from in and around the intraocular lens was accomplished. He then received 2 drops of 0.5% timolol followed by 2 drops of 0.5% moxifloxacin, was then lightly patched and shielded in the usual manner. There were no complications from the procedure. He tolerated the procedure well and was returned to outpatient recovery in good condition. MMDEANDRA / KALI: [id number] /
== END 2021-05-22 10:21 | disposition home or self-care (01) ==
LOC: OR 07:25
PROVIDERS: ATTEND Ophthalmology
DX: E11.36 Type 2 diabetes mellitus with diabetic cataract (principal); H25.12 Age-related nuclear cataract, left eye; H25.042 Posterior subcapsular polar age-related cataract, left eye; H43.393 Other vitreous opacities, bilateral; H04.129 Dry eye syndrome of unspecified lacrimal gland; H00.023 Hordeolum internum right eye, unspecified eyelid; H00.026 Hordeolum internum left eye, unspecified eyelid; H52.223 Regular astigmatism, bilateral; Z98.41 Cataract extraction status, right eye; Z96.1 Presence of intraocular lens; H52.4 Presbyopia; H52.13 Myopia, bilateral; I25.10 Atherosclerotic heart disease of native coronary artery without angina pectoris; I11.9 Hypertensive heart disease without heart failure; Z95.1 Presence of aortocoronary bypass graft; Z98.890 Other specified postprocedural states; I10 Essential (primary) hypertension; Z87.891 Personal history of nicotine dependence; J45.909 Unspecified asthma, uncomplicated; J44.9 Chronic obstructive pulmonary disease, unspecified; E07.9 Disorder of thyroid, unspecified; M19.90 Unspecified osteoarthritis, unspecified site; N28.9 Disorder of kidney and ureter, unspecified; N40.0 Benign prostatic hyperplasia without lower urinary tract symptoms; F32.9 Major depressive disorder, single episode, unspecified; Z90.89 Acquired absence of other organs; Z97.2 Presence of dental prosthetic device (complete) (partial); Z87.442 Personal history of urinary calculi; Z86.19 Personal history of other infectious and parasitic diseases; Z82.61 Family history of arthritis; Z83.3 Family history of diabetes mellitus; Z82.49 Family history of ischemic heart disease and other diseases of the circulatory system; Z82.3 Family history of stroke; Z83.49 Family history of other endocrine, nutritional and metabolic diseases; Z80.9 Family history of malignant neoplasm, unspecified; Z79.84 Long term (current) use of oral hypoglycemic drugs; Z79.82 Long term (current) use of aspirin; Z79.890 Hormone replacement therapy; Z79.891 Long term (current) use of opiate analgesic; Z79.899 Other long term (current) drug therapy; Z91.041 Radiographic dye allergy status
CPT/HCPCS: 66984; C1780; J2250; J0171; J2001

== ENCOUNTER → 2022-06-10 | Outpatient (CLI) | payer MEDICARE | END | disposition home or self-care (01) | LOC: LABWHC1 12:09 | PROVIDERS: ATTEND Internal Medicine | DX: N18.31 Chronic kidney disease, stage 3a (principal) | CPT/HCPCS: 36415; 83735 ==

== ENCOUNTER → 2022-06-25 | Outpatient (CLI) | payer MEDICARE ==
--- NOTE | 2022-06-25 13:29 | P.SLEEP ---
History of Present Illness DATE: 06/25/2022 CONSULTATION/NEW PATIENT EVALUATION HISTORY OF PRESENT ILLNESS/SLEEP-WAKE EVALUATION: 71year old gentleman had been evaluated in the sleep center for possible obstructive sleep apnea hypopnea syndrome and excessive daytime sleepiness. SLEEP SCHEDULE: Usually sleep schedule on weekdays from midnight to 10 AM 7 days a week. FALLING ASLEEP: Sometimes patient has problems with falling to sleep, he says TV set in bedroom. DURING SLEEP: Patient snores and wakes up from sleep 3 times with up to 2 episodes of nocturia. No history of hypnogogical hallucinations, sleep paralysis, or cataplexy. DURING THE DAY/WAKE STATE: In the morning patient wake up tired, has problems with memory and irritability ,he takes naps up to 3 times a day. [place] sleepiness scale is 6.[]. PAST MEDICAL HISTORY: Coronary artery disease, diabetes mellitus, hypertension, hypothyroidism, episodes of anxiety, low back problems, kidney stones, asthma. PAST SURGICAL HISTORY: Coronary artery bypass graft, surgical treatment of kidney stones, bilateral cataract surgery. MEDICATIONS: Isosorbide 60 mg once a day, pravastatin 20 mg once a day, metformin 500 mg 2 tablets a day, amlodipine 5 mg once a day, aspirin 81 mg once a day, furosemide 20 mg once a day, levothyroxine 112 g once a day, Zoloft 50 mg once a day, tramadol 50 mg once a day, metoprolol 100 mg once a day. SOCIAL HISTORY: Positive for smoking for about 25 pack years quit 20 years ago smoking, alcohol consumption occasional. FAMILY HISTORY: Snoring. REVIEW OF SYSTEMS: Snoring, multiple awakenings from sleep, tiredness and sleepiness during the day.. No fevers. No double vision. No recent chest pain. No shortness of breath. No abdominal pain. No bleeding episodes. No blood in urine. No seizure episodes. PHYSICAL EXAMINATION: GENERAL: A pleasant patient without any distress. VITAL SIGNS: BP 155/85 , HR 6216 , RR[] , weight 211.6 pounds, height 5 foot 6- 3/4 inches, body mass index 33.3 . HEENT: PERRLA, EOMI. Evaluation of oropharynx showed tongue protrudes midline, low position of soft palate Mallampati4. NECK: Supple. No JVD. Thyroid is not palpable. 16 inches in circumference. LUNGS: Clear to percussion and to auscultation. Good air exchange. No wheezing or rhonchi. HEART: S1, S2 regular. No murmurs, gallops or rubs. ABDOMEN: Soft and nontender. Bowel sounds are present. No organomegaly appreciated. EXTREMITIES: No clubbing or cyanosis. 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 Cranial nerves 2 to 7 intact. There is no fasciculation or atrophy noted. No focal deficits observed. ASSESSMENT: 1. Snoring, multiple awakenings from sleep, extremely low position of soft palate Mallampati 4. Patient take naps several times a day, sleepiness. Obstructive sleep apnea hypopnea syndrome. 2. Mild obesity body mass index 33.3. 3 hypertension. 4. Coronary artery disease status post coronary artery bypass graft. 5 diabetes mellitus. 6. Hypothyroidism. 7. Headaches. 8. History of anxiety episodes. 9. History of asthma. 10. Low back pain. 11. History of kidney stones status post surgical treatment. 12 status post bilateral cataract surgery. 13 sinuses problems. PLAN: 1. Polysomnography for evaluation of patient's breathing during sleep. Patient may need multiple sleep latency test if sleep study will not show any physical abnormalities of sleep. 2. CPAP/BiPAP titration if sleep study confirms obstructive sleep apnea- hypopnea syndrome. 3. Preferable position during sleep on the side. 4. No driving if patient feels any sleepiness. Patient is aware of civil and criminal liability for unsafe driving. 5. Sleep hygiene with regular sleep time for at least 7.5-8 hours. 6. Watching weight. Thank you very much for referring this patient for consultation. Sincerely, Rj Curiel MD, PhD, FAASM. Diplomat of [employer] [place] [employer], Sleep Medicine Board by [employer] [place] [employer] [place] [employer] [facility] [place] Past Medical History Past Medical History: Asthma, Chest Pain / Angina, COPD, Diabetes Mellitus, Eye Disorder, Hyperlipidemia, Hypertension, Osteoarthritis (OA), Renal Disease, Thyroid Disorder Additional Past Medical History / Comment(s): fully vaccinated for covid History of Any Multi-Drug Resistant Organisms: None Reported Past Surgical History: Coronary Bypass/CABG, Heart Catheterization, Heart Catheterization With Stent, Tonsillectomy Additional Past Surgical History / Comment(s): kidney stones X 14- (LARGE KIDNEY STONE REMOVED 1980)HEART CATH X 3, DOUBLE BYPASS(CABG) 2002, right cataract removed 05-08-21 Past Anesthesia/Blood Transfusion Reactions: Previous Problems w/ Anesthesia Additional Past Anesthesia/Blood Transfusion Reaction / Comment(s): PT WAS TOLD "HARD TO INTUBATE", had some N/V after last cataract surg. but it was later in the day Date of Last Stent Placement:: 2002 Smoking Status: Former smoker - Past Family History Mother Family Medical History: Myocardial Infarction ([place]) Additional Family Medical History / Comment(s): @ AGE 41 [place] Father Family Medical History: Diabetes Mellitus Additional Family Medical History / Comment(s): @ AGE 78 BLOCKAGE IN PANCREATIC DUCT Medications and Allergies Home Medications Medication Instructions Recorded Confirmed Type Isosorbide Mononitrate ER [Imdur] 60 mg PO DAILY 10/21/15 05/20/21 History Potassium Chloride [Klor-Con 10 ER] 10 meq PO HS 10/21/15 05/20/21 History Pravastatin Sodium [Pravachol] 20 mg PO HS 10/21/15 05/20/21 History traMADol HCL [Ultram] 100 mg PO QAM 10/21/15 05/20/21 History metFORMIN HCL [Glucophage] 1,000 mg PO QAM 08/27/16 05/20/21 History Furosemide [Lasix] 20 mg PO DAILY 01/30/21 05/20/21 History Levothyroxine Sodium [Synthroid] 112 mcg PO DAILY 01/30/21 05/20/21 History Sertraline HCl [Zoloft] 100 mg PO DAILY 01/30/21 05/20/21 History Tamsulosin HCl [Flomax] 0.4 mg PO MOWEFR 01/30/21 05/20/21 History amLODIPine [Norvasc] 5 mg PO HS 01/30/21 05/20/21 History lisinopriL [Zestril] 20 mg PO DAILY 01/30/21 05/20/21 History metFORMIN HCL [Glucophage] 500 mg PO HS 01/30/21 05/20/21 History traMADol HCL 50 mg PO HS 01/30/21 05/20/21 History Aspirin 81 mg PO DAILY 30 Days #30 chew 01/31/21 05/20/21 Rx Metoprolol Succinate (ER) [Toprol 100 mg PO DAILY 05/20/21 05/20/21 History Xl] Allergies Allergy/AdvReac Type Severity Reaction Status Date / Time Iodine and Iodide Containing Allergy Rash/Hives Verified 05/22/21 07:55 Produc Sleep Note - Sleep Note Sleep Note: Temperature: Pulse Rate: Respiratory Rate: Blood Pressure: SpO2: Height: Weight: BMI: Neck Circumference:
== END ==
LOC: SLEEP 11:03
PROVIDERS: ATTEND Internal Medicine
DX: G47.33 Obstructive sleep apnea (adult) (pediatric) (principal); E66.01 Morbid (severe) obesity due to excess calories; I10 Essential (primary) hypertension; I25.10 Atherosclerotic heart disease of native coronary artery without angina pectoris; E11.9 Type 2 diabetes mellitus without complications; E03.9 Hypothyroidism, unspecified; F41.9 Anxiety disorder, unspecified; J45.909 Unspecified asthma, uncomplicated; M54.50 Low back pain, unspecified; J34.9 Unspecified disorder of nose and nasal sinuses; Z87.442 Personal history of urinary calculi; Z95.1 Presence of aortocoronary bypass graft; Z98.42 Cataract extraction status, left eye; Z98.41 Cataract extraction status, right eye; Z98.890 Other specified postprocedural states; Z68.33 Body mass index [BMI] 33.0-33.9, adult; Z79.84 Long term (current) use of oral hypoglycemic drugs; Z79.890 Hormone replacement therapy; Z79.899 Other long term (current) drug therapy; Z87.891 Personal history of nicotine dependence; Z91.041 Radiographic dye allergy status
CPT/HCPCS: 99211

== ENCOUNTER → 2022-07-03 | Outpatient (CLI) | payer MEDICARE ==
--- NOTE | 2022-07-03 11:52 | US ---
EXAMINATION TYPE: US kidneys/renal and bladder DATE OF EXAM: 07/03/2022 COMPARISON: 07/08/2019 CLINICAL HISTORY: 71-year-old male N18.31 ckd STAGE 3A. CKD, hx kidney stone. Hx left kidney stone re moved. Technique: Multiple sonographic images of the kidneys and bladder are obtained. FINDINGS: EXAM MEASUREMENTS: Right Kidney: 10.9 x 5.0 x 4.6 cm Left Kidney: 10.4 x 4.8 x 4.9 cm Right Kidney: Lower pole cortical cyst measuring 1.6 x 1.5 x 1.5 cm may contain an 8 mm area of mural nodularity and should be reassessed on follow-up. There is a 5 mm echogenic focus of the midpole. No hydronephrosis. Left Kidney: Subtle echogenic focus measuring 6 mm at the mid pole could represent a prominent vascul ar reflector or nonobstructive calculus. Bladder: Appears anechoic. Bilateral Jets seen: Yes IMPRESSION: 1. There may be a mildly complex cyst at the lower pole of the right kidney measuring 1.6 cm with an 8 mm mural nodule versus debris. 3 a 6 month follow-up ultrasound to reassess. 2. Possible nonobstructive calculus on either side measuring up to 6 mm. 3. No hydronephrosis.
== END | disposition home or self-care (01) ==
LOC: RADUSWWP 09:30
PROVIDERS: ATTEND Internal Medicine Nephrology
DX: N18.31 Chronic kidney disease, stage 3a (principal); N28.1 Cyst of kidney, acquired
CPT/HCPCS: 76770

== ENCOUNTER → 2022-09-06 | Outpatient (CLI) | payer MEDICARE ==
--- NOTE | 2022-09-07 06:13 | MR ---
EXAMINATION TYPE: MR kidney wo/w con DATE OF EXAM: 09/06/2022 COMPARISON: None HISTORY: RIGHT RENAL MASS CONTRAST: Standard multiplanar, multisequence MRI departmental protocol images were obtained without contrast a nd with 10 mL intravenous Gadavist gadolinium contrast. The kidneys have normal size and contour. There are multiple bilateral renal cortical cysts that fuentes ure up to 1.4 cm. No hydronephrosis. Liver shows normal size and contour. The bile ducts are not dilated. Spleen is intact. There is no adrenal mass. Gallbladder appears normal. There is no retroperitoneal adenopathy. The con trast images show no pathologic enhancement. There is normal enhancement of the portal venous system. There is no ascites. No evidence of a bowel obstruction. No pancreatic mass. IMPRESSION: Renal cortical cysts. No evidence of a solid renal mass.
== END | disposition home or self-care (01) ==
LOC: RADMRIMAIN 11:29
PROVIDERS: ATTEND Urology
DX: N28.1 Cyst of kidney, acquired (principal)
CPT/HCPCS: 74183; A9585

== ENCOUNTER 2022-10-10 08:58 | Inpatient (IN) | payer MEDICARE ==
[2022-10-07 14:03] VITALS: BMI 32.9
[~2022-10-10 08:58] MED LIST changes: +ALPRAZolam 0.25 MG TAB PO PRN; +ALPRAZolam 0.5 MG TAB PO PRN; +ASPIRIN 325 MG TAB PO PRN; +ASPIRIN 81 MG PO PRN; +CLOPIDOGREL 75 MG TAB PO PRN; -CYCLOPENTOLATE 1% OPHTH SOLN 2 ML BTL OP PRN; -LACTATED RINGERS 1,000 ML IV SCH; -LIDOCAINE 1% (10MG/ML) FOR IV START INTRADERMA PRN; -MOXIFLOXACIN HCL 0.5% DROPS 3 ML BTL OP PRN; -ONDANSETRON 4 MG/2 ML VIAL IVP ONE; -PHENYLEPHRINE 2.5% OPHTH DRP 2ML OP PRN; +SODIUM CHLORIDE 0.9% 1,000 ML in EMPTY BAG 1 BAG IV ONE; -TETRACAINE 0.5% OPHTH (PF) DROPS 4 ML BTL OP PRN; -TIMOLOL 0.5% OPHTH DROPS 5 ML BTL OP PRN; +ceFAZolin 2 GM in SODIUM CHLORIDE 0.9% 500 ML 500 ML IRRIGATION PRN
[2022-10-10] MEDS ORDERED: RX INFO: IV CONTRAST WAS GIVEN 1 EACH MISC MISCELLANE PRN (09:00)
[2022-10-10] MEDS ORDERED: SODIUM CHLORIDE 0.9% 1,000 ML IV ONE (09:08)
[2022-10-10 09:28] LABS: Glucose,Whole Blood 93 mg/dL (70-110)
[2022-10-10] MEDS ORDERED: CLOPIDOGREL 75 MG TAB ONE (09:52)
[2022-10-10] MEDS ORDERED: ASPIRIN 81 MG PO SCH (10:00)
[2022-10-10] MEDS ORDERED: CLOPIDOGREL 75 MG TAB PO SCH (10:00)
[2022-10-10] MEDS ORDERED: fentaNYL (PF) 50 MCG/ML 2 ML AMP ONE (10:55)
[2022-10-10] MEDS ORDERED: NITROGLYCERIN-D5W PMX 50 MG/250 ML BOTTLE IV ONE (10:55)
[2022-10-10] MEDS ORDERED: GLYCOPYRROLATE 0.2 MG/ML 2 ML VIAL ONE (10:55)
[2022-10-10] MEDS ORDERED: hydrALAZINE HCL 20 MG/ML 1 ML VIAL ONE (10:55)
[2022-10-10] MEDS ORDERED: PROTAMINE SULFATE 10 MG/ML 5 ML VIAL IV ONE ×2 (10:55→12:15)
[2022-10-10] MEDS ORDERED: HEPARIN SODIUM,PORCINE 10,000 UNIT/ML 1 ML VIAL ONE (10:55)
[2022-10-10] MEDS ORDERED: LIDOCAINE 1% INJ 10MG/ML (30 ML VIAL-PF) SQ ONE (11:20)
--- NOTE | 2022-10-10 12:52 | P.OP ---
Description of Procedure: Date: 10/10/2022 Preoperative diagnosis: Right ICA stenosis greater than 90%, uncontrolled diabetes Postoperative diagnosis: Same Procedure: Right Transcarotid artery revascularization with stenting Surgeon: Micha Elena DO Family Law Legal Assistant: None Anesthesia: Local with sedation Complications: None Condition: Stable Flow reversal time: 14 minutes Fluoroscopy time: 6 minutes Contrast: 18 mL Indication for procedure: 71-year-old gentleman with history of carotid stenosis and previous hospitalization, history of TIA, diabetes presents to the hospital for TCAR and stenting. He has a previous history of difficult intubation and states that he is unable to be intubated. Due to these factors he was scheduled for trans-carotid artery revascularization and stenting. Operative narrative: After written and informed consent was obtained the patient all risks benefits and competitions were described the patient was brought to the Shoe Repair Supervisor and laid in a supine position. The area of the neck and groins were prepped and draped in usual sterile fashion after appropriate anesthetic was performed per the anesthesiologist. A timeout was performed in normal fashion and antibiotics were administered prior to incision. Utilizing ultrasound the right common carotid artery was located and a transverse incision was created overlying this area. Dissection was carried between the sternocleidomastoid musculature down to the carotid sheath. The sheath was then incised and the common carotid artery was located and dissected free in a ci rcumferential manner and controlled with umbilical tape. Once controlled attention was placed down to the common femoral vein on the last and utilizing ultrasound the vein was cannulated and the 8-Rwandan sheath was placed in normal fashion. Attention was then placed back to the carotid artery and the patient was administered heparin and followed with ACTs and redosed as needed for ACT above 200. A pursestring suture was then placed at the common carotid artery with 6-0 Prolene and utilizing a multipurpose needle the common carotid artery was accessed and wire was placed followed by a 4-Rwandan sheath. Carotid angiogram was then obtained demonstrating significant stenosis greater than 90% in the internal carotid artery. Stiff wire was then placed followed by the 8 [place] sheath. Flow reversal was then established with the enroute MECHANIC SOUND TECHNICIAN system after patient's blood pressure was increased to above 160, heart rate above 60 and ACT above 250. 014 wire was then placed across the lesion followed by a 5.5 x 30 mm balloon and balloon angioplasty was performed followed by an 9 x 40 mm Silkroad stent. Postdilatation was 5.5 x 30 mm and final angiogram was obtained demonstrating complete resolution of the stenosis. All guidewires and catheters were removed and the sheath was removed and the arteriotomy was secured with the previously placed pursestring suture. Hemostasis was assured with Gelfoam and thrombin. The femoral sheath was also removed and pressure was held for hemostasis. The patient all procedure well and was moving all extremities and following commands. He was then sent to PACU for recovery.
[2022-10-10] MEDS ORDERED: MAG HYDROX/AL HYDROX/SIMETH 30 ML CUP PO PRN (12:54)
[2022-10-10] MEDS ORDERED: ATROPINE SULFATE 0.1 MG/ML 10ML SYRINGE IV PRN (12:54)
--- NOTE | 2022-10-10 13:04 | IR ---
EXAMINATION TYPE: IR stent intravas non coronary DATE OF EXAM: 10/10/2022 COMPARISON: NONE HISTORY: Fluoroscopy time. Fluoroscopy was provided to the referring clinician.
[2022-10-10] MEDS ORDERED: DEXTROSE 50% SYRINGE 50 ML IVP PRN (14:09)
[2022-10-10] MEDS ORDERED: HYDROmorphone 0.5 MG/0.5 ML SYRINGE IVP ONE (14:45)
[2022-10-10 16:45] LABS: Glucose,Whole Blood 83 mg/dL (70-110)
[2022-10-10] MEDS: SODIUM CHLORIDE 0.9% 1,000 ML IV SCH (17:59)
[2022-10-10] MEDS: amLODIPine 5 MG TAB PO SCH (17:59)
[2022-10-10] MEDS: METOPROLOL SUCCINATE (ER) 100 MG TAB.ER.24H PO SCH (17:59)
[2022-10-10] MEDS: HYDROcodone/APAP 5-325MG 1 EACH TAB PO PRN ×2 (18:00→21:59)
[2022-10-10] MEDS: DEXMEDETOMIDINE/0.9% NACL(PMX) 400 MCG in EMPTY BAG 1 BAG IV SCH (18:19)
[2022-10-10] MEDS: INSULIN ASPART (NovoLOG) 100 UNIT/ML VIAL SQ SCH ×2 (18:21→19:54)
[2022-10-10 19:37] LABS: Glucose,Whole Blood 83 mg/dL (70-110)
[2022-10-10] MEDS: ATORVASTATIN 40 MG TAB PO SCH (20:03)
[2022-10-11] MEDS: SODIUM CHLORIDE 0.9% 1,000 ML IV SCH (01:18)
[2022-10-11] MEDS: HYDROcodone/APAP 5-325MG 1 EACH TAB PO PRN ×3 (02:10→20:03)
[2022-10-11] MEDS: LEVOTHYROXINE 112 MCG TAB PO SCH (05:57)
[2022-10-11] MEDS: INSULIN ASPART (NovoLOG) 100 UNIT/ML VIAL SQ SCH ×4 (05:58→20:14)
[2022-10-11 05:59] LABS: Glucose,Whole Blood 75 mg/dL (70-110)
[2022-10-11 08:37] LABS: Basophils % (A) 0 %; Eosinophils # (A) 0.3 k/uL (0-0.7); Eosinophils % (A) 4 %; HCT 40.9 % (39.0-53.0); Hypochromasia Slight; Lymphocytes # (A) 1.5 k/uL (1.0-4.8); Lymphocytes % (A) 18 %; MCHC 31.7 g/dL (31.0-37.0); MCV 97.6 fL (80.0-100.0); Mean Platelet Volume 8.7; Monocytes # (A) 0.4 k/uL (0-1.0); Monocytes % (A) 5 %; Neutrophils % (A) 72 %; Platelet Count 195 k/uL (150-450); RBC 4.19 m/uL (4.30-5.90); RDW 13.3 % (11.5-15.5); WBC 8.3 k/uL (3.8-10.6)
[2022-10-11 08:52] LABS: Calcium 8.7 mg/dL (8.4-10.2); Potassium 4.4 mmol/L (3.5-5.1)
[2022-10-11] MEDS ORDERED: METOPROLOL SUCCINATE (ER) 100 MG TAB.ER.24H PO SCH (09:00)
[2022-10-11] MEDS ORDERED: amLODIPine 5 MG TAB PO SCH (09:00)
[2022-10-11] MEDS ORDERED: ASPIRIN 81 MG PO SCH (09:00)
--- NOTE | 2022-10-11 10:03 | P.CONS ---
History of Present Illness - Reason for Consult Consult date: 10/11/22 Medical management - Chief Complaint Right Transcarotid artery revascularization with stenting - History of Present Illness Patient is a 71-year-old male with a known history of coronary artery disease with history of CABG, cardiac catheterization stent placement, hypertension, diabetes type 2, hyperlipidemia, osteoarthritis and hypothyroidism was admitted to the hospital for right carotid artery stent placement. Patient was seen by neurology recently due to wobbling gait and is MRA of the neck and brain was done which showed significant stenosis of the right carotid artery. Patient was also having some blurry vision on and off. Patient tolerated the procedure very well.. No complaints of chest pain or shortness of breath. No dizziness or lightheadedness. No cough or sputum production. No nausea vomiting or abdominal pain or diarrhea. No headache. Blood pressure is low with SBP 90s this morning and was given a fluid bolus. Blood pressure medications were held. Laboratory data showed WBC 8.3 hemoglobin 13.0 and platelets 195 Sodium 140 potassium 4.4 chloride 100 bicarb is 26 BUN 18 and creatinine 1.13 and blood sugar is 104 and calcium 8.7 and A1c 5.8. Review of Systems Constitutional: Patient denies any fever or chills . No generalized weakness or weight loss. Abdomen: Patient denied nausea vomiting and diarrhea and abdominal pain. Cardiovascular: Patient denies any chest pain or short of breath no palpitations. Respiratory: patient denied any cough is from production. No shortness of breath Neurologic: Patient denied any numbness or tingling headache. Musculoskeletal: Patient denies any complaints of joint swelling or deformity. Skin: Negative Psychiatric: Negative Endocrine: No heat or cold intolerance. No recent weight gain. Genitourinary: No dysuria or hematuria. All other 14 point ROS negative except the above Past Medical History Past Medical History: Asthma, Coronary Artery Disease (CAD), Chest Pain / Angina, Diabetes Mellitus, Eye Disorder, Hyperlipidemia, Hypertension, Osteoarthritis (OA), Renal Disease, Thyroid Disorder Additional Past Medical History / Comment(s): fully vaccinated for covid History of Any Multi-Drug Resistant Organisms: None Reported Past Surgical History: Coronary Bypass/CABG, Heart Catheterization, Heart Catheterization With Stent, Tonsillectomy Additional Past Surgical History / Comment(s): kidney stones X 14- (LARGE KIDNEY STONE REMOVED 1980)HEART CATH X 3, DOUBLE BYPASS(CABG) 2002, right cataract removed 05-08-21, STENTS PUT IN HEART PRIOR TO OPEN HEART Past Anesthesia/Blood Transfusion Reactions: Previous Problems w/ Anesthesia, Postoperative Nausea & Vomiting (PONV) Additional Past Anesthesia/Blood Transfusion Reaction / Comm: PT WAS TOLD "HARD TO INTUBATE" IN 2002 WITH CABG. Date of Last Stent Placement:: 2002 PRIOR TO OPEN HEART Smoking Status: Former smoker - Past Family History Mother Family Medical History: Myocardial Infarction ([place]) Additional Family Medical History / Comment(s): @ AGE 42 [place] Father Family Medical History: Diabetes Mellitus Additional Family Medical History / Comment(s): @ AGE 78 BLOCKAGE IN PANCREATIC DUCT Brother(s) Family Medical History: Cancer Additional Family Medical History / Comment(s): BONE CANCER Medications and Allergies Home Medications Medication Instructions Recorded Confirmed Type Isosorbide Mononitrate ER [Imdur] 60 mg PO DAILY 10/21/15 10/10/22 History Pravastatin Sodium [Pravachol] 20 mg PO HS 10/21/15 10/10/22 History traMADol HCL [Ultram] 100 mg PO QAM 10/21/15 10/10/22 History metFORMIN HCL [Glucophage] 1,000 mg PO QAM 08/27/16 10/10/22 History Furosemide [Lasix] 20 mg PO DAILY 01/30/21 10/10/22 History Levothyroxine Sodium [Synthroid] 112 mcg PO DAILY 01/30/21 10/10/22 History Sertraline HCl [Zoloft] 150 mg PO DAILY 01/30/21 10/10/22 History Tamsulosin HCl [Flomax] 0.4 mg PO DAILY 01/30/21 10/10/22 History amLODIPine [Norvasc] 5 mg PO DAILY 01/30/21 10/10/22 History lisinopriL [Zestril] 40 mg PO DAILY 01/30/21 10/10/22 History metFORMIN HCL [Glucophage] 500 mg PO HS 01/30/21 10/10/22 History traMADol HCL 50 mg PO HS 01/30/21 10/10/22 History Metoprolol Succinate (ER) [Toprol 100 mg PO DAILY 05/20/21 10/10/22 History Xl] Clopidogrel [Plavix] 75 mg PO DAILY 10/07/22 10/07/22 History Magnesium 400 mg PO BID 10/07/22 10/10/22 History Pravastatin Sodium [Pravachol] 20 mg PO HS 10/07/22 10/10/22 History calcitrioL [Calcitriol] 0.25 mcg PO MOWEFR 10/07/22 10/10/22 History traZODone HCL [Desyrel] 100 mg PO HS 10/07/22 10/10/22 History Allergies Allergy/AdvReac Type Severity Reaction Status Date / Time Iodine and Iodide Containing Allergy Rash/Hives Verified 10/10/22 09:32 Produc Physical Exam Vitals: Vital Signs Temp Pulse Pulse Resp BP BP Pulse Ox 10/11/22 09:00 56 L 16 85/52 97 10/11/22 08:49 55 L 18 88/49 97 10/11/22 08:30 98.3 F 45 L 50 L 18 88/53 98 10/11/22 03:10 98.4 F 48 L 15 139/65 96 10/10/22 23:09 97.9 F 49 L 16 138/79 94 L 10/10/22 19:55 48 L 145/73 10/10/22 19:30 97.8 F 51 L 18 135/62 97 10/10/22 17:25 60 60 18 171/72 10/10/22 16:30 96.3 F L 60 18 174/74 98 10/10/22 16:25 53 L 16 168/80 99 10/10/22 16:10 54 L 16 170/76 100 10/10/22 15:40 53 L 16 145/76 99 10/10/22 15:25 55 L 16 156/74 100 10/10/22 15:10 56 L 16 137/76 100 10/10/22 14:55 56 L 16 160/77 99 10/10/22 14:40 58 L 16 168/81 100 10/10/22 14:25 59 L 16 156/81 100 10/10/22 14:10 59 L 16 165/82 99 10/10/22 13:55 60 16 156/77 99 10/10/22 13:40 59 L 16 157/80 99 10/10/22 13:25 63 16 150/79 99 10/10/22 13:18 66 16 125/73 99 10/10/22 13:10 67 16 97/61 99 10/10/22 13:08 71 16 111/66 98 10/10/22 12:55 74 16 133/78 98 10/10/22 12:40 97.0 F L 85 16 134/74 99 Intake and Output 10/10/22 10/11/22 10/11/22 22:59 06:59 14:59 Intake Total 237 120 Output Total 50 500 Balance 187 -500 120 Intake: Oral 237 120 Output: Urine 50 500 Stool 0 Urine/Stool Mix 0 Emesis 0 Oral Regurgitation 0 Other: Voiding Method Urinal Urinal # Voids 0 # Bowel Movements 0 Weight 91.6 kg PHYSICAL EXAMINATION: Patient is lying in the bed comfortably, no acute distress, awake alert and oriented.. HEENT: Normocephalic. Neck is supple. Pupils reactive. Nostrils clear. Oral cavity is moist. Right neck surgical site bandaged. Neck reveals no JVD, carotid bruits, or thyromegaly. CHEST EXAMINATION: Trachea is central. Symmetrical expansion. Lung vazquez clear to auscultation and percussion. CARDIAC: Normal S1, S2 with no gallops. No murmurs ABDOMEN: Soft. Bowel sounds normal. No organomegaly. No abdominal bruits. Extremities: reveal no edema. No clubbing or cyanosis Neurologically awake, alert, oriented x3 with well-coordinated movements. No focal deficits noted Skin: No rash or skin lesions. Psychiatric: Coperative. Nonsuicidal Musculoskeletal: No joint swelling or deformity. Normal range of motion. Results CBC & Chem 7: 10/11/22 07:47 10/11/22 07:47 Labs: Abnormal Lab Results - Last 24 Hours (Table) 10/11/22 10/11/22 Range/Units 07:47 07:47 RBC 4.19 L (4.30-5.90) m/uL Chloride 108 H (98-107) mmol/L Glucose 104 H (74-99) mg/dL Assessment and Plan Assessment: Status post right carotid stent placement due to stenosis Recent history of TIA/CVA with memory impairment and wobbling gait. Improved now Hypertension. Diabetes type 2 [id number]. Coronary artery disease with history of CABG and stent placement Hyperlipidemia Osteoarthritis Hypothyroidism Prior history of smoking DVT prophylaxis Plan: Patient will be continued on pain management and bowel regimen. Blood pressureMedications on hold due to hypotension. Continue to titrate blood pressure medications. Patient was given IV fluid bolus. Continue with other home medications and follow up closely. Thank you for your consult.
--- NOTE | 2022-10-11 11:05 | P.DS ---
Providers Date of admission: 10/10/22 08:58 Attending physician: Micha Elena DO Consults: 10/10/22 12:54 Consult Physician Routine Consulting Provider: Elvira Zambrano Consult Reason/Comments: medical management Do you want consulting provider notified?: Yes Primary care physician: Cecilia Tracey [facility] Course: Patient is a 71-year-old male with high-grade right internal carotid artery stenosis who recommended undergo a trans-carotid artery revascularization which was performed successfully on 10/10/2022. Over the evening the patient has been doing well. This morning he did have one episode of low blood pressure and on a separate occasion some dizziness which is something he has had previous but otherwise is feeling well. He did receive a fluid bolus which did improve his blood pressures. He is urinating well well. He is tolerating a diet. We will continue to monitor him for his further blood pressure through the day. Otherwise he is in satisfactory condition for discharge home. He is to continue his aspirin and Plavix at home. We will modify blood pressure medications as necessary for discharge. Patient Condition at Discharge: Good Plan - Discharge Summary Discharge Rx Participant: Yes New Discharge Prescriptions: No Action traMADol HCL [Ultram] 100 mg PO QAM Isosorbide Mononitrate ER [Imdur] 60 mg PO DAILY Pravastatin Sodium [Pravachol] 20 mg PO HS metFORMIN HCL [Glucophage] 1,000 mg PO QAM metFORMIN HCL [Glucophage] 500 mg PO HS traMADol HCL 50 mg PO HS amLODIPine [Norvasc] 5 mg PO DAILY Furosemide [Lasix] 20 mg PO DAILY Levothyroxine Sodium [Synthroid] 112 mcg PO DAILY Sertraline HCl [Zoloft] 150 mg PO DAILY lisinopriL [Zestril] 40 mg PO DAILY Tamsulosin HCl [Flomax] 0.4 mg PO DAILY Metoprolol Succinate (ER) [Toprol Xl] 100 mg PO DAILY Clopidogrel [Plavix] 75 mg PO DAILY calcitrioL [Calcitriol] 0.25 mcg PO MOWEFR Pravastatin Sodium [Pravachol] 20 mg PO HS traZODone HCL [Desyrel] 100 mg PO HS Magnesium 400 mg PO BID Discharge Medication List Isosorbide Mononitrate ER [Imdur] 60 mg PO DAILY 10/21/15 [History] Pravastatin Sodium [Pravachol] 20 mg PO HS 10/21/15 [History] traMADol HCL [Ultram] 100 mg PO QAM 10/21/15 [History] metFORMIN HCL [Glucophage] 1,000 mg PO QAM 08/27/16 [History] Furosemide [Lasix] 20 mg PO DAILY 01/30/21 [History] Levothyroxine Sodium [Synthroid] 112 mcg PO DAILY 01/30/21 [History] Sertraline HCl [Zoloft] 150 mg PO DAILY 01/30/21 [History] Tamsulosin HCl [Flomax] 0.4 mg PO DAILY 01/30/21 [History] amLODIPine [Norvasc] 5 mg PO DAILY 01/30/21 [History] lisinopriL [Zestril] 40 mg PO DAILY 01/30/21 [History] metFORMIN HCL [Glucophage] 500 mg PO HS 01/30/21 [History] traMADol HCL 50 mg PO HS 01/30/21 [History] Metoprolol Succinate (ER) [Toprol Xl] 100 mg PO DAILY 05/20/21 [History] Clopidogrel [Plavix] 75 mg PO DAILY 10/07/22 [History] Magnesium 400 mg PO BID 10/07/22 [History] Pravastatin Sodium [Pravachol] 20 mg PO HS 10/07/22 [History] calcitrioL [Calcitriol] 0.25 mcg PO MOWEFR 10/07/22 [History] traZODone HCL [Desyrel] 100 mg PO HS 10/07/22 [History] Follow up Appointment(s)/Referral(s): Micha Elena DO [STAFF PHYSICIAN] - 1 Week Activity/Diet/Wound Care/Special Instructions: May shower starting tomorrow. No baths or swimming. Continue home medications as ordered. Continue to take a baby aspirin daily as well as Plavix Discharge Disposition: HOME SELF-CARE
[2022-10-11 11:31] LABS: Glucose,Whole Blood 85 mg/dL (70-110)
[2022-10-11] MEDS: TAMSULOSIN 0.4 MG CAP.ER.24H PO SCH (12:29)
[2022-10-11] MEDS: SERTRALINE 50 MG TAB PO SCH (12:29)
[2022-10-11] MEDS: ASPIRIN 81 MG PO SCH (12:29)
[2022-10-11] MEDS: CLOPIDOGREL 75 MG TAB PO SCH (12:29)
[2022-10-11 16:53] LABS: Glucose,Whole Blood 105 mg/dL (70-110)
[2022-10-11] MEDS: DEXMEDETOMIDINE/0.9% NACL(PMX) 400 MCG in EMPTY BAG 1 BAG IV SCH (18:08)
[2022-10-11] MEDS: ISOSORBIDE MONONITRATE ER 60 MG TAB.ER.24H PO SCH (18:09)
[2022-10-11] MEDS: amLODIPine 5 MG TAB PO SCH (18:09)
[2022-10-11] MEDS: METOPROLOL SUCCINATE (ER) 100 MG TAB.ER.24H PO SCH (18:09)
[2022-10-11] MEDS: ATORVASTATIN 40 MG TAB PO SCH (20:03)
[2022-10-11 20:09] LABS: Glucose,Whole Blood 113 mg/dL (70-110)
[2022-10-12 05:56] LABS: Glucose,Whole Blood 80 mg/dL (70-110)
[2022-10-12] MEDS: LEVOTHYROXINE 112 MCG TAB PO SCH (06:02)
[2022-10-12] MEDS: INSULIN ASPART (NovoLOG) 100 UNIT/ML VIAL SQ SCH ×2 (06:02→11:39)
[2022-10-12 07:21] VITALS: TEMP 98.3
[2022-10-12] MEDS: ISOSORBIDE MONONITRATE ER 60 MG TAB.ER.24H PO SCH (08:28)
[2022-10-12] MEDS: amLODIPine 5 MG TAB PO SCH (08:28)
[2022-10-12] MEDS: METOPROLOL SUCCINATE (ER) 100 MG TAB.ER.24H PO SCH (08:28)
[2022-10-12] MEDS: SERTRALINE 50 MG TAB PO SCH (08:30)
[2022-10-12] MEDS: CLOPIDOGREL 75 MG TAB PO SCH (08:31)
[2022-10-12] MEDS: ASPIRIN 81 MG PO SCH (08:31)
[2022-10-12] MEDS: TAMSULOSIN 0.4 MG CAP.ER.24H PO SCH (08:31)
[2022-10-12 11:45] LABS: Glucose,Whole Blood 94 mg/dL (70-110)
[2022-10-12 16:27] VITALS: BP 152/81; PULSE 51; RESP 18
[2022-10-12] MEDS ORDERED: amLODIPine 5 MG TAB PO SCH (21:00)
== END 2022-10-12 16:51 | disposition home or self-care (01) | DRG 36 ==
LOC: 2ORMAIN 08:58 → 3SCARD 15:54
PROVIDERS: ADMIT Surgery; ATTEND Surgery
PROC: 037K3DZ Dilation of Right Internal Carotid Artery with Intraluminal Device, Percutaneous Approach (ICD-10-PCS; principal; 2022-10-10 11:30)
DX: I65.21 Occlusion and stenosis of right carotid artery (principal); E03.9 Hypothyroidism, unspecified; J44.9 Chronic obstructive pulmonary disease, unspecified; Z79.890 Hormone replacement therapy; M10.9 Gout, unspecified; E11.65 Type 2 diabetes mellitus with hyperglycemia; E78.5 Hyperlipidemia, unspecified; I10 Essential (primary) hypertension; E11.42 Type 2 diabetes mellitus with diabetic polyneuropathy; I25.10 Atherosclerotic heart disease of native coronary artery without angina pectoris; J45.909 Unspecified asthma, uncomplicated; M19.90 Unspecified osteoarthritis, unspecified site; Z79.02 Long term (current) use of antithrombotics/antiplatelets; Z79.82 Long term (current) use of aspirin; Z79.84 Long term (current) use of oral hypoglycemic drugs; Z79.899 Other long term (current) drug therapy; Z86.73 Personal history of transient ischemic attack (TIA), and cerebral infarction without residual deficits; Z87.442 Personal history of urinary calculi; Z87.891 Personal history of nicotine dependence; Z95.1 Presence of aortocoronary bypass graft; Z95.5 Presence of coronary angioplasty implant and graft; Z91.041 Radiographic dye allergy status; Z98.41 Cataract extraction status, right eye
CPT/HCPCS: 37215; 80048; 83036; 85025; 86850; 86900; 86901; 94760

== ENCOUNTER → 2023-06-29 | Outpatient (CLI) | payer MEDICARE ==
[2023-06-29 15:45] LABS: Basophils # (A) 0.04 X 10*3/uL (0.00-0.10); Basophils % (A) 0.4 %; Eosinophils # (A) 0.38 X 10*3/uL (0.04-0.35); Eosinophils % (A) 4.1 %; HCT 40.4 % (39.6-50.0); HGB 12.6 d/dL (13.0-17.0); Lymphocytes # (A) 2.45 X 10*3/uL (0.90-5.00); Lymphocytes % (A) 26.7 %; MCH 30.4 pg (27.0-32.0); MCHC 31.2 d/dL (32.0-37.0); MCV 97.3 FL (80.0-97.0); Monocytes # (A) 0.77 X 10*3/uL (0.20-1.00); Monocytes % (A) 8.4 %; NRBC Per 100 WBC 0 X 10*3/uL (0.00-0.01); Neutrophils % (A) 60.2 %; Platelet Count 233 X 10*3/uL (140-440); RBC 4.15 X 10*6/uL (4.40-5.60); RDW 13.2 % (11.5-14.5); WBC 9.16 X 10*3/uL (4.50-10.00)
[2023-06-29 16:20] LABS: ALT 24 U/L (10-49); AST 23 U/L (14-35); Albumin 4.3 d/dL (3.8-4.9); Albumin/Globulin Ratio 1.87 Ratio (1.60-3.17); Alkaline Phosphatase 101 U/L (41-126); BUN/Creat Ratio 22.31 Ratio (12.00-20.00); Calcium 9.7 mg/dL (8.7-10.3); Carbon Dioxide 29.7 mmol/L (21.6-31.8); Chloride 103 mmol/L (96-109); Chol/HDL Ratio 2.93 Ratio; Globulin 2.3 d/dL (1.6-3.3); Glucose 94 mg/dL (70-110); LDL Cholesterol,Calculated 68.6 mg/dL (0.0-131.0); Magnesium 2.1 mg/dL (1.5-2.4); Potassium 4.7 mmol/L (3.5-5.5); Sodium 144 mmol/L (135-145); T4, Free (Free Thyroxine) 1.38 ng/dL (0.80-1.80); Total Bilirubin 0.2 mg/dL (0.3-1.2); Total Protein 6.6 d/dL (6.2-8.2)
== END | disposition home or self-care (01) ==
LOC: LABWHC1 10:19
PROVIDERS: ATTEND Internal Medicine
DX: Z11.59 Encounter for screening for other viral diseases (principal); E03.9 Hypothyroidism, unspecified; N40.0 Benign prostatic hyperplasia without lower urinary tract symptoms; E11.40 Type 2 diabetes mellitus with diabetic neuropathy, unspecified; E55.9 Vitamin D deficiency, unspecified
CPT/HCPCS: 36415; 80053; 80061; 82306; 82607; 82746; 83036; 83735; 84153; 84439; 84443; 85025; 86803

== ENCOUNTER → 2023-07-31 | Outpatient (CLI) | payer MEDICARE ==
--- NOTE | 2023-07-31 08:55 | US ---
EXAMINATION TYPE: US kidneys/renal and bladder DATE OF EXAM: 07/31/2023 COMPARISON: Renal ultrasound 07/03/2022, 07/08/2019, MR kidney 09/06/2022 CLINICAL INDICATION: Male, 72 years old with history of N28.9 renal insufficiency; abnormal blood wor k, hx cortical cysts and renal calculi EXAM MEASUREMENTS: Right Kidney: 10.3x4.9x4.7 cm Left Kidney: 9.8x4.6x5.3 cm Right Kidney: 1.4x1.4x1.4 renal cyst redemonstrated at mid/inferior lateral pole Left Kidney: shadowing echogenic foci measures up to 0.6cm at mid/ inferior pole Bladder: wnl Bilateral Jets seen: Yes There is no evidence for hydronephrosis at this point in time. 1.4 cm right renal simple appearing cy st. Nonobstructive left renal calculi measuring up to 0.6 cm. Corticomedullary differentiation is angelita ntained bilaterally. The urinary bladder is anechoic. Bilateral ureteral jets are seen. IMPRESSION: 1. No hydronephrosis. 2. Nonobstructive left renal calculi. 3. Right renal simple cyst.
== END | disposition home or self-care (01) ==
LOC: RADUSWWP 07:45
PROVIDERS: ATTEND Internal Medicine
DX: N20.0 Calculus of kidney (principal); N28.1 Cyst of kidney, acquired
CPT/HCPCS: 76770

== ENCOUNTER → 2023-10-02 | Outpatient (CLI) | payer MEDICARE ==
--- NOTE | 2023-10-02 10:23 | XR ---
EXAMINATION TYPE: XR shoulder complete RT DATE OF EXAM: 10/02/2023 COMPARISON: NONE HISTORY: Chronic pain TECHNIQUE: Three views are submitted. FINDINGS: The osseous structures are intact. There is no acute fracture or dislocation. Severe AC joint arthropathy. Sternotomy changes are noted. IMPRESSION: 1. Severe AC joint arthropathy correlate with MRI if concern for rotator cuff disease..
== END | disposition home or self-care (01) ==
LOC: RADXRMAIN 09:24
PROVIDERS: ATTEND Internal Medicine
DX: M19.011 Primary osteoarthritis, right shoulder (principal)

== ENCOUNTER 2023-11-16 21:11 | Emergency (ER) | payer MEDICARE ==
[2023-11-16] MEDS ORDERED: SODIUM CHLORIDE 0.9% 1,000 ML IV STA (21:52)
[2023-11-16] MEDS ORDERED: KETOROLAC 15 MG/ML 1 ML VIAL IVP STA (21:52)
[2023-11-16] MEDS ORDERED: ONDANSETRON 4 MG/2 ML VIAL IVP STA (21:52)
[2023-11-16] MEDS ORDERED: PANTOPRAZOLE 40 MG/10 ML VIAL IVP STA (21:52)
[2023-11-16] MEDS ORDERED: ACETAMINOPHEN TAB 500 MG TAB PO STA (21:54)
[2023-11-16] MEDS ORDERED: MORPHINE SULFATE 2 MG/ML SYRINGE IVP STA (21:54)
--- NOTE | 2023-11-16 22:36 | ED ---
General Adult HPI - General Chief complaint: Back Pain/Injury Stated complaint: Back Pain Time Seen by Provider: 11/16/23 21:32 Source: patient, RN notes reviewed, old records reviewed Mode of arrival: ambulatory Limitations: no limitations - History of Present Illness Initial comments: Patient is a 72-year-old male with past medical history remarkable for kidney stones, hypertension, CAD, thyroid disorder, asthma who presents emergency Department complaining of right flank pain. Has been ongoing for the last week however worse over the last day. Has a history of multiple kidney stones and states this is very similar to that pain. Denies any known hematuria. Denies any fevers or chills. Denies any abdominal pain otherwise. States this pain that starts in his lower back and rates around towards the right groin. No dysuria. Denies any emesis but does endorse mild nausea. Denies diarrhea. His no other acute complaints at this time. Presents for further evaluation at this time. - Related Data Home Medications Medication Instructions Recorded Confirmed Isosorbide Mononitrate ER [Imdur] 60 mg PO DAILY 10/21/15 10/10/22 Pravastatin Sodium [Pravachol] 20 mg PO HS 10/21/15 10/10/22 traMADol HCL [Ultram] 100 mg PO QAM 10/21/15 10/10/22 metFORMIN HCL [Glucophage] 1,000 mg PO QAM 08/27/16 10/10/22 Furosemide [Lasix] 20 mg PO DAILY 01/30/21 10/10/22 Levothyroxine Sodium [Synthroid] 112 mcg PO DAILY 01/30/21 10/10/22 Sertraline HCl [Zoloft] 150 mg PO DAILY 01/30/21 10/10/22 Tamsulosin HCl [Flomax] 0.4 mg PO DAILY 01/30/21 10/10/22 metFORMIN HCL [Glucophage] 500 mg PO HS 01/30/21 10/10/22 traMADol HCL 50 mg PO HS 01/30/21 10/10/22 Metoprolol Succinate (ER) [Toprol 100 mg PO DAILY 05/20/21 10/10/22 XL] Clopidogrel [Plavix] 75 mg PO DAILY 10/07/22 10/07/22 Magnesium 400 mg PO BID 10/07/22 10/10/22 Pravastatin Sodium [Pravachol] 20 mg PO HS 10/07/22 10/10/22 calcitrioL [Calcitriol] 0.25 mcg PO MOWEFR 10/07/22 10/10/22 traZODone HCL [Desyrel] 100 mg PO HS 10/07/22 10/10/22 Previous Rx's Medication Instructions Recorded Aspirin 81 mg PO DAILY tab 10/11/22 amLODIPine [Norvasc] 5 mg PO HS #0 10/12/22 lisinopriL [Zestril] 10 mg PO DAILY #30 tab 10/12/22 Lidocaine 5% Patch [Lidoderm 5% 1 patch TOPICAL DAILY PRN 14 Days 11/17/23 Patch] #14 patch Allergies Allergy/AdvReac Type Severity Reaction Status Date / Time Iodine and Iodide Containing Allergy Rash/Hives Verified 11/16/23 21:26 Produc Review of Systems ROS Statement: Those systems with pertinent positive or pertinent negative responses have been documented in the HPI. Review of Systems: CONST: Denies fever EYES: Denies blurry vision ENT: Denies nasal congestion C/V: Denies Chest pain RESP: Denies shortness of breath GI: Endorses right flank pain. : Denies dysuria SKIN: Denies rash. MSK: Denies joint pain. NEURO: Denies headache ROS Other: All systems not noted in ROS Statement are negative. Past Medical History Past Medical History: Asthma, Coronary Artery Disease (CAD), Chest Pain / Angina, Diabetes Mellitus, Eye Disorder, Hyperlipidemia, Hypertension, Osteoarthritis (OA), Renal Disease, Thyroid Disorder Additional Past Medical History / Comment(s): fully vaccinated for covid History of Any Multi-Drug Resistant Organisms: None Reported Past Surgical History: Coronary Bypass/CABG, Heart Catheterization, Heart Catheterization With Stent, Tonsillectomy Additional Past Surgical History / Comment(s): kidney stones X 14- (LARGE KIDNEY STONE REMOVED 1980)HEART CATH X 3, DOUBLE BYPASS(CABG) 2002, right cataract removed 05-08-21, STENTS PUT IN HEART PRIOR TO OPEN HEART Past Anesthesia/Blood Transfusion Reactions: Previous Problems w/ Anesthesia, Postoperative Nausea & Vomiting (PONV) Additional Past Anesthesia/Blood Transfusion Reaction / Comment(s): PT WAS TOLD "HARD TO INTUBATE" IN 2002 WITH CABG. Date of Last Stent Placement:: 2002 PRIOR TO OPEN HEART Past Psychological History: Anxiety Smoking Status: Former smoker Past Drug Use History: None Reported - Past Family History Mother Family Medical History: Myocardial Infarction (NM) Additional Family Medical History / Comment(s): @ AGE 42 NM Father Family Medical History: Diabetes Mellitus Additional Family Medical History / Comment(s): @ AGE 78 BLOCKAGE IN PANCREATIC DUCT Brother(s) Family Medical History: Cancer Additional Family Medical History / Comment(s): BONE CANCER General Exam - General Exam Comments Initial Comments: General: Appears in no acute distress. Possible fever in triage however repeat temp was within normal limits. We will continue to monitor. HEAD: Normal with no signs of head trauma. EYES: PERRLA, EOMI, conjunctiva normal, no discharge. ENT: Hearing grossly intact, normal oropharynx. RESPIRATORY: Clear breath sounds bilaterally. No wheezes, rales, or rhonchi. C/V: Regular rate and rhythm. S1 and S2 auscultated, no edema, peripheral pulses 2+ and intact throughout ABD: Abd is soft, nondistended. Mild tenderness to palpation in the right flank. No guarding. No CVA tenderness to percussion. No rebound tenderness. No peritoneal signs. EXT: Normal range of motion, no obvious deformity SKIN: No rashes or lesions observed on exposed skin. NEURO: Alert and oriented x 4. Limitations: no limitations Course Vital Signs 11/16/23 11/16/23 11/16/23 21:19 22:10 23:45 Temperature 100.0 F H 99.6 F Pulse Rate 79 78 73 Respiratory 18 18 17 Rate Blood Pressure 203/82 167/80 159/79 O2 Sat by Pulse 99 98 100 Oximetry 11/17/23 00:39 Temperature 98.3 F Pulse Rate 80 Respiratory 18 Rate Blood Pressure 145/78 O2 Sat by Pulse 96 Oximetry Medical Decision Making - Medical Decision Making Was pt. sent in by a medical professional or institution (, PA, REFLESHER, urgent care, hospital, or fci...) When possible be specific @ -No Did you speak to anyone other than the patient for history (EMS, parent, family, police, friend...)? What history was obtained from this source @ -No Did you review nursing and triage notes (agree or disagree)? Why? @ -I reviewed and agree with nursing and triage notes Were old charts reviewed (outside hosp., previous admission, EMS record, old EKG, old radiological studies, urgent care reports/EKG's, fci records)? Report findings @ -Old charts reviewed Differential Diagnosis (chest pain, altered mental status, abdominal pain women, abdominal pain men, vaginal bleeding, weakness, fever, dyspnea, syncope, headache, dizziness, GI bleed, back pain, seizure, CVA, palpatations, mental health, musculoskeletal)? @ -Differential Abdominal Pain Men: Appendicitis, cholecystitis, diverticulosis, ischemic bowel, pancreatitis, hepatitis, UTI, gastroenteritis, AAA, incarcerated hernia, bowel obstruction, constipation, inflammatory bowel, hepatitis, peptic ulcer disease, splenic infarction, perforated viscus, testicular torsion, this is not meant to be an all-inclusive list EKG interpreted by me (3pts min.). @ -None done X-rays interpreted by me (1pt min.). @ -None done CT interpreted by me (1pt min.). @ - U/S interpreted by me (1pt. min.). @ -None done What testing was considered but not performed or refused? (CT, X-rays, U/S, labs)? Why? @ -None What meds were considered but not given or refused? Why? @ -None Did you discuss the management of the patient with other professionals (professionals i.e. , PA, REFLESHER, lab, RT, psych nurse, social worker aide, contract mail carrier, teacher, special loan officer, cyanide case hardener)? Give summary @ -No Was smoking cessation discussed for >3mins.? @ -No Was critical care preformed (if so, how long)? @ -No Were there social determinants of health that impacted care today? How? (Homelessness, low income, unemployed, alcoholism, drug addiction, transportation, low edu. Level, literacy, decrease access to med. care, detention, rehab)? @ -No Was there de-escalation of care discussed even if they declined (Discuss DNR or withdrawal of care, Hospice)? DNR status @ -No What co-morbidities impacted this encounter? (DM, HTN, Smoking, COPD, CAD, Cancer, CVA, ARF, Chemo, Hep., AIDS, mental health diagnosis, sleep apnea, morbid obesity)? @ -None Was patient admitted / discharged? Hospital course, mention meds given and route, prescriptions, significant lab abnormalities, going to OR and other pertinent info. @ -Based on the patient's presentation and physical exam, I'm concerned for was likely a right sided kidney stone or other acute intra-abdominal process for the patient. We'll obtain abdominal laboratory studies, CT without contrast of the abdomen, as well as symptomatically treat the patient with IV fluids, Protonix, Zofran, Toradol. Patiently also given Tylenol. Patient agreement. Morphine ordered however we will hold and evaluate further if needed. Patient is slightly hypertensive upon presentation however repeat vital signs and patient is unremarkable within acceptable limits. Also febrile listed initially in triage however afebrile at bedside. We'll continue to monitor. Patient's labs returned unremarkable. CT had a long delay secondary to it being late at night, and it revealed no obvious acute intra-abdominal process to explain the patient's symptoms. He has an uncomplicated left nonobstructing renal calculi. On reevaluation, patient is feeling improved. We discussed his workup. Diagnosis is abdominal pain of unknown etiology. Could also be a muscle strain is patient states it has been present for a week and is worse with movement. I will give him a lidocaine patch as well as prescription for them. Recommend a follow-up with his PCP. He was in agreement with this plan. I will provide the patient with a prescription for lidocaine patch. I instructed the patient to follow up with their PCP in the next 1-3 days. I explained that the patient should return to the emergency department if they experience any worsening symptoms. Strict return precautions were discussed with the patient. The patient expressed understanding of these instructions. I answered all questions that the patient had. The patient was discharged home in good condition with their prescriptions and follow up information. Undiagnosed new problem with uncertain prognosis? @ -No Drug Therapy requiring intensive monitoring for toxicity (Heparin, Nitro, Insulin, Cardizem)? @ -No Were any procedures done? @ -No Diagnosis/symptom? @ -Muscle strain, abdominal pain of unknown etiology Acute, or Chronic, or Acute on Chronic? @ -Acute Uncomplicated (without systemic symptoms) or Complicated (systemic symptoms)? @ -Uncomplicated Side effects of treatment? @ -none Exacerbation, Progression, or Severe Exacerbation] @ -no Poses a threat to life or bodily function? @ -no - Lab Data Result diagrams: 11/16/23 22:13 11/16/23 22:13 Lab Results 12/18/23 12/18/23 12/18/23 Range/Units 22:13 22:13 22:13 WBC 8.9 (3.8-10.6) k/uL RBC 4.39 (4.30-5.90) m/uL Hgb 13.7 (13.0-17.5) gm/dL Hct 41.6 (39.0-53.0) % MCV 94.6 (80.0-100.0) fL MCH 31.2 (25.0-35.0) pg MCHC 33.0 (31.0-37.0) g/dL RDW 13.5 (11.5-15.5) % Plt Count 182 (150-450) k/uL MPV 8.2 Neutrophils % 83 % Lymphocytes % 8 % Monocytes % 7 % Eosinophils % 1 % Basophils % 0 % Neutrophils # 7.4 (1.3-7.7) k/uL Lymphocytes # 0.7 L (1.0-4.8) k/uL Monocytes # 0.6 (0-1.0) k/uL Eosinophils # 0.1 (0-0.7) k/uL Basophils # 0.0 (0-0.2) k/uL PT (10.0-12.5) sec INR (<1.2) APTT (22.0-30.0) sec Sodium 141 (137-145) mmol/L Potassium 4.2 (3.5-5.1) mmol/L Chloride 102 (98-107) mmol/L Carbon Dioxide 26 (22-30) mmol/L Anion Gap 13 mmol/L BUN 21 H (9-20) mg/dL Creatinine 1.21 (0.66-1.25) mg/dL Est GFR (CKD-EPI)AfAm 69 (>60 ml/min/1.73 sqM) Est GFR (CKD-EPI)NonAf 59 (>60 ml/min/1.73 sqM) Glucose 128 H (74-99) mg/dL Plasma Lactic Acid [place] 1.5 (0.7-2.0) mmol/L Calcium 9.3 (8.4-10.2) mg/dL Total Bilirubin 0.3 (0.2-1.3) mg/dL AST 31 (17-59) U/L ALT 21 (4-49) U/L Alkaline Phosphatase 142 H (38-126) U/L Total Protein 7.4 (6.3-8.2) g/dL Albumin 4.4 (3.5-5.0) g/dL Amylase 84 (30-110) U/L Lipase 237 (23-300) U/L Urine Color Urine Appearance (Clear) Urine pH (5.0-8.0) Ur Specific [place] (1.001-1.035) Urine Protein (Negative) Urine Glucose (UA) (Negative) Urine Ketones (Negative) Urine Blood (Negative) Urine Nitrite (Negative) Urine Bilirubin (Negative) Urine Urobilinogen (<2.0) mg/dL Ur Leukocyte Esterase (Negative) Urine RBC (0-5) /hpf Urine WBC (0-5) /hpf Ur Squamous Epith Cells (0-4) /hpf Amorphous Sediment (None) /hpf Hyaline Casts (0-2) /lpf Urine Mucus (None) /hpf 11/16/23 11/16/23 Range/Units 22:47 23:07 WBC (3.8-10.6) k/uL RBC (4.30-5.90) m/uL Hgb (13.0-17.5) gm/dL Hct (39.0-53.0) % MCV (80.0-100.0) fL MCH (25.0-35.0) pg MCHC (31.0-37.0) g/dL RDW (11.5-15.5) % Plt Count (150-450) k/uL MPV Neutrophils % % Lymphocytes % % Monocytes % % Eosinophils % % Basophils % % Neutrophils # (1.3-7.7) k/uL Lymphocytes # (1.0-4.8) k/uL Monocytes # (0-1.0) k/uL Eosinophils # (0-0.7) k/uL Basophils # (0-0.2) k/uL PT 10.6 (10.0-12.5) sec INR 1.0 (<1.2) APTT 23.8 (22.0-30.0) sec Sodium (137-145) mmol/L Potassium (3.5-5.1) mmol/L Chloride (98-107) mmol/L Carbon Dioxide (22-30) mmol/L Anion Gap mmol/L BUN (9-20) mg/dL Creatinine (0.66-1.25) mg/dL Est GFR (CKD-EPI)AfAm (>60 ml/min/1.73 sqM) Est GFR (CKD-EPI)NonAf (>60 ml/min/1.73 sqM) Glucose (74-99) mg/dL Plasma Lactic Acid [place] (0.7-2.0) mmol/L Calcium (8.4-10.2) mg/dL Total Bilirubin (0.2-1.3) mg/dL AST (17-59) U/L ALT (4-49) U/L Alkaline Phosphatase (38-126) U/L Total Protein (6.3-8.2) g/dL Albumin (3.5-5.0) g/dL Amylase (30-110) U/L Lipase (23-300) U/L Urine Color Light Yellow Urine Appearance Clear (Clear) Urine pH 6.0 (5.0-8.0) Ur Specific [place] 1.026 (1.001-1.035) Urine Protein 1+ H (Negative) Urine Glucose (UA) Negative (Negative) Urine Ketones Negative (Negative) Urine Blood Negative (Negative) Urine Nitrite Negative (Negative) Urine Bilirubin Negative (Negative) Urine Urobilinogen <2.0 (<2.0) mg/dL Ur Leukocyte Esterase Negative (Negative) Urine RBC 1 (0-5) /hpf Urine WBC 1 (0-5) /hpf Ur Squamous Epith Cells <1 (0-4) /hpf Amorphous Sediment Rare H (None) /hpf Hyaline Casts 11 H (0-2) /lpf Urine Mucus Rare H (None) /hpf Disposition Clinical Impression: Abdominal pain of unknown etiology, Muscle strain Disposition: HOME SELF-CARE Condition: Good Instructions (If sedation given, give patient instructions): Abdominal Pain (ED) Prescriptions: Lidocaine 5% Patch [Lidoderm 5% Patch] 1 patch TOPICAL DAILY PRN 14 Days #14 patch PRN Reason: Pain Is patient prescribed a controlled substance at d/c from ED?: No Referrals: Yuri Baez MD [Primary Care Provider] - 1-2 days Time of Disposition: 01:15
[2023-11-16 22:42] LABS: Basophils % (A) 0 %; Eosinophils # (A) 0.1 k/uL (0-0.7); Eosinophils % (A) 1 %; HCT 41.6 % (39.0-53.0); HGB 13.7 gm/dL (13.0-17.5); Lymphocytes # (A) 0.7 k/uL (1.0-4.8); Lymphocytes % (A) 8 %; MCH 31.2 pg (25.0-35.0); MCV 94.6 fL (80.0-100.0); Mean Platelet Volume 8.2; Monocytes # (A) 0.6 k/uL (0-1.0); Monocytes % (A) 7 %; Neutrophils # (A) 7.4 k/uL (1.3-7.7); Neutrophils % (A) 83 %; Platelet Count 182 k/uL (150-450); RBC 4.39 m/uL (4.30-5.90); RDW 13.5 % (11.5-15.5); WBC 8.9 k/uL (3.8-10.6)
[2023-11-16 23:04] LABS: ALT 21 U/L (4-49); AST 31 U/L (17-59); African American GFR (CKD) 69 (>60 ml/min/1.73 sqM); Albumin 4.4 g/dL (3.5-5.0); Alkaline Phosphatase 142 U/L (38-126); Amylase 84 U/L (30-110); Blood Urea Nitrogen 21 mg/dL (9-20); Calcium 9.3 mg/dL (8.4-10.2); Carbon Dioxide 26 mmol/L (22-30); Glucose 128 mg/dL (74-99); Lipase 237 U/L (23-300); Non-African American GFR(CKD) 59 (>60 ml/min/1.73 sqM); Total Bilirubin 0.3 mg/dL (0.2-1.3); Total Protein 7.4 g/dL (6.3-8.2)
[2023-11-16 23:08] LABS: Amorphous Sediment,Urine Rare /hpf; Appearance,Urine Clear (Clear); Bilirubin,Urine Negative (Negative); Blood,Urine Negative (Negative); Color,Urine Light Yellow; Glucose,Urine (UA) Negative (Negative); Hyaline Casts,Urine 11 /lpf (0-2); Ketones,Urine Negative (Negative); Leukocyte Esterase,Urine Negative (Negative); Mucus,Urine Rare /hpf; Nitrite,Urine Negative (Negative); Protein,Urine 1+ (Negative); RBC,Urine 1 /hpf (0-5); Specific Gravity,Urine 1.026 (1.001-1.035); Squamous Epithelial Cell,Urine <1 /hpf (0-4); Urobilinogen,Urine <2.0 mg/dL (<2.0); WBC,Urine 1 /hpf (0-5)
[2023-11-16 23:15] LABS: Anion Gap 13 mmol/L; Chloride 102 mmol/L (98-107); Potassium 4.2 mmol/L (3.5-5.1); Sodium 141 mmol/L (137-145)
[2023-11-16 23:36] LABS: Partial Thromboplastin Time 23.8 sec (22.0-30.0); Prothrombin Time 10.6 sec (10.0-12.5)
[2023-11-17 00:53] VITALS: BP 145/78; PULSE 80; RESP 18; TEMP 98.3
--- NOTE | 2023-11-17 01:05 | CT ---
EXAMINATION TYPE: CT abdomen pelvis wo con CT DLP: 859 mGycm, Automated exposure control for dose reduction was used. DATE OF EXAM: 11/16/2023 11:20 PM COMPARISON: MRI kidney 09/06/2022. CLINICAL INDICATION:Male, 72 years old with history of right flank pain; TECHNIQUE: Axial CT of the ;CT abdomen pelvis wo con;Sagittal and coronal reformats were created on a separate workstation. Contrast used: mL of , (none if empty) Oral contrast used: (none if empty) FINDINGS: LOWER CHEST: Sternotomy wires partially visualized. Coronary artery atherosclerosis. ABDOMEN LIVER: Unremarkable GALLBLADDER AND BILE DUCTS: Unremarkable. PANCREAS: Unremarkable. SPLEEN: Unremarkable. ADRENAL GLANDS: Unremarkable. KIDNEYS AND URETERS: No hydronephrosis. Right renal cyst with peripheral calcification is unchanged. Left nonobstructing renal calculi measuring up to 5 mm. No right renal calculi. PELVIS BLADDER: Decompressed and grossly unremarkable. REPRODUCTIVE: Prostate is enlarged in size measuring 4.9 cm in transverse dimension. ABDOMEN & PELVIS STOMACH AND BOWEL: Scattered diverticula are noted throughout the colon. No evidence of bowel obstruc tion. Appendix is located in the right upper quadrant and appears within normal limits with feces and side. Small hiatal hernia. PERITONEUM/RETROPERITONEUM: No evidence of pneumoperitoneum or free fluid. VASCULATURE: No evidence of aortic aneurysm. MUSCULOSKELETAL: No acute osseous abnormalities. Severe disc degeneration changes are present through out the thoracolumbar spine. LYMPH NODES: No gross evidence for lymphadenopathy. SOFT TISSUE/ABDOMINAL WALL: Unremarkable IMPRESSION: 1. No evidence for obstructive uropathy or evidence for acute process to explain the patient's right pain. 2. Left obstructing renal calculi. 3. Prostatomegaly, correlate with serum PSA. 4. Stable right mildly complex renal cysts compared to 09/06/2022 MRI. 5. Small hiatal hernia.
[2023-11-17] MEDS ORDERED: LIDOCAINE 4% PATCH TOPICAL STA (01:22)
== END 2023-11-17 01:44 | disposition home or self-care (01) ==
LOC: EC 21:11
DX: S39.012A Strain of muscle, fascia and tendon of lower back, initial encounter (principal); R10.31 Right lower quadrant pain; E78.5 Hyperlipidemia, unspecified; E11.36 Type 2 diabetes mellitus with diabetic cataract; I10 Essential (primary) hypertension; I25.10 Atherosclerotic heart disease of native coronary artery without angina pectoris; J44.89 Other specified chronic obstructive pulmonary disease; E07.9 Disorder of thyroid, unspecified; M19.90 Unspecified osteoarthritis, unspecified site; F41.9 Anxiety disorder, unspecified; Z87.891 Personal history of nicotine dependence; Z91.041 Radiographic dye allergy status; Z79.84 Long term (current) use of oral hypoglycemic drugs; Z79.890 Hormone replacement therapy; Z79.02 Long term (current) use of antithrombotics/antiplatelets; Z79.899 Other long term (current) drug therapy; X58.XXXA Exposure to other specified factors, initial encounter
CPT/HCPCS: 36415; 80053; 82150; 83605; 83690; 85025; 85610; 85730; 81001; 74176; 99284; 96374; 96375 ×2; 96361 ×2; J2405; J1885; C9113

== ENCOUNTER → 2024-08-05 | Outpatient (CLI) | payer MEDICARE ==
[2024-08-06 02:06] LABS: Basophils # (A) 0.07 X 10*3/uL (0.00-0.10); Basophils % (A) 0.9 %; Eosinophils # (A) 0.42 X 10*3/uL (0.04-0.35); Eosinophils % (A) 5.3 %; HCT 42.7 % (39.6-50.0); HGB 13.4 g/dL (13.0-17.0); Lymphocytes # (A) 2.52 X 10*3/uL (0.90-5.00); Lymphocytes % (A) 31.8 %; MCH 30.4 pg (27.0-32.0); MCHC 31.4 g/dL (32.0-37.0); MCV 96.8 FL (80.0-97.0); Mean Platelet Volume 10.8 FL (9.5-12.2); Monocytes # (A) 0.55 X 10*3/uL (0.20-1.00); Monocytes % (A) 6.9 %; NRBC Per 100 WBC 0 X 10*3/uL (0.00-0.01); Neutrophils # (A) 4.35 X 10*3/uL (1.80-7.70); Neutrophils % (A) 54.8 %; Platelet Count 255 X 10*3/uL (140-440); RBC 4.41 X 10*6/uL (4.40-5.60); RDW 13.6 % (11.5-14.5); WBC 7.93 X 10*3/uL (4.50-10.00)
[2024-08-06 03:04] LABS: ALT 19 U/L (10-49); AST 24 U/L (14-35); Albumin 4.3 g/dL (3.8-4.9); Albumin/Globulin Ratio 1.54 Ratio (1.60-3.17); Alkaline Phosphatase 125 U/L (41-126); Blood Urea Nitrogen 19.9 mg/dL (9.0-27.0); Calcium 9.5 mg/dL (8.7-10.3); Carbon Dioxide 28.8 mmol/L (21.6-31.8); Chloride 104 mmol/L (96-109); Chol/HDL Ratio 3.39 Ratio; Globulin 2.8 g/dL (1.6-3.3); Glucose 90 mg/dL (70-110); LDL Cholesterol,Calculated 43.1 mg/dL (0.0-131.0); Magnesium 2.1 mg/dL (1.5-2.4); Potassium 4.5 mmol/L (3.5-5.5); Sodium 144 mmol/L (135-145); Total Bilirubin 0.2 mg/dL (0.3-1.2); Total Protein 7.1 g/dL (6.2-8.2)
[2024-08-06 03:05] LABS: PSA Annual Screen 0.851 ng/mL (0.000-4.000)
== END | disposition home or self-care (01) ==
LOC: LABWHC1 15:40
PROVIDERS: ATTEND Internal Medicine
DX: Z12.5 Encounter for screening for malignant neoplasm of prostate (principal); I10 Essential (primary) hypertension; E11.9 Type 2 diabetes mellitus without complications; N40.0 Benign prostatic hyperplasia without lower urinary tract symptoms; E55.9 Vitamin D deficiency, unspecified
CPT/HCPCS: 36415; 80053; 80061; 82306; 83036; 83735; 84443; 85025

== ENCOUNTER → 2025-02-11 | Outpatient (CLI) | payer MEDICARE ==
--- NOTE | 2025-02-11 15:47 | MR ---
EXAMINATION TYPE: MR brain wo/w [place] wo/on DATE OF EXAM: 02/11/2025 3:10 PM COMPARISON: None. CLINICAL INDICATION: Male, 74 years old with history of H81.12 BENIGN PAROXYSMAL VERTIGO, LEFT EAR, D izziness and losing balance TECHNIQUE: Multi planar multi sequence imaging of the brain. CONTRAST: Patient received 9 mL intravenous Gadobutrol gadolinium contrast. Pre and post contrast en hanced images are obtained. FINDINGS: The ventricles, basal cisterns and sulci overlying the cerebral convexities are mildly enlarged. There is evidence of mild periventricular white matter ischemic demyelination. Remote deep white matter insults are also noted. No acute edema is seen on diffusion weighted imaging. There is no evidence for midline shift or mass effect. Acute intracranial hemorrhage or extra-axial collection is not evident. No enhancing lesions are seen. The paranasal sinuses and mastoid air cells are well-aerated. IMPRESSION: Age-related atrophic and chronic small vessel ischemic change. No acute intracranial process at this time. No enhancing lesions are seen. EXAMINATION TYPE: MR brain wo/w [place] /[facility] DATE OF EXAM: 02/11/2025 3:10 PM COMPARISON: None. CLINICAL INDICATION: Male, 74 years old with history of H81.12 BENIGN PAROXYSMAL VERTIGO, LEFT EAR, D izziness and losing balance TECHNIQUE: Three-dimensional [id number] cervical carotid MRA was performed with multiple intensit y projection images submitted and source data reviewed at the workstation. 3-D reformatted images and maximum intensity projection reformatted images were created on a separate workstation. FINDINGS: Right carotid system: There is mild plaque seen about the common carotid artery. There is 3.4 cm in l ength defect noted involving the distal common carotid artery extending into the carotid bulb and pro ximal right ICA which may reflect artifact of uncertain etiology and possibly related to prior stent placement. Correlate if there is such a history. At the proximal right ICA approximately 2.2 cm from the region of the bifurcation there is a high-grade stenosis estimated at greater than 95% considered critical. Right external carotid artery right vertebral artery are patent. Left carotid system: Mild plaque involving the left common carotid artery. Mild to moderate origin le ft ICA. 50-60% diameter reduction proximal left ICA.External carotid artery and the left vertebral a rtery are patent. IMPRESSION: 1.At the proximal right ICA approximately 2.2 cm from the region of the bifurcation there is a high-g rade stenosis estimated at greater than 95% considered critical. 2. 50-60% diameter reduction proximal left ICA. [facility], , 02/11/2025 3:45 PM
== END | disposition home or self-care (01) ==
LOC: RADMRIMAIN 12:53
PROVIDERS: ATTEND Internal Medicine
DX: I65.23 Occlusion and stenosis of bilateral carotid arteries (principal); H81.12 Benign paroxysmal vertigo, left ear; G31.1 Senile degeneration of brain, not elsewhere classified; I67.82 Cerebral ischemia
CPT/HCPCS: 70549; 70553; A9585